=== PATIENT | female | born 1960 | race Caucasian/White ===

== ENCOUNTER 2017-09-01 12:08 | Emergency (ER) | payer OTHER ==
[2017-09-01 13:07] LABS: Absolute Lymphocytes (CBC) 0.6 K/uL (0.7-4.9); Absolute Monocytes 0.9 K/uL (0.1-1.3); Absolute Neutrophil 9.8 K/uL (1.8-8.0); Basophils % 0.2 % (0-1.3); Eosinophils % 0.1 % (0-4.4); Hematocrit 36.9 % (36.0-45.0); Lymphocytes % 5.4 % (15.3-44.8); MCH 30.6 pg (27.0-35.0); MCV 92.5 fL (80-100); Monocytes % 7.8 % (3.3-12.3); RBC Red Blood Cell Count 3.99 M/uL (3.86-4.86)
[2017-09-01 13:10] LABS: Potassium 3.6 mEq/L (3.6-5.0)
[2017-09-01 13:37] LABS: Blood Morphology Comment NOT SEEN (NOT SEEN); Platelet Estimate ADEQ; Urine White Blood Cell Casts OK
--- NOTE | 2017-09-01 13:49 | EDPHYS ---
Physician Documentation [facility] Name: Becca De Leon Age: 56 yrs Sex: Female : 1960 Arrival Date: 09/01/2017 Time: 12:12 Bed 5 Private MD: ED Physician Pierre Daniel HPI: 09/01 12:57 This 56 yrs old Female presents to ER via Ambulatory with complaints of jr8 Fever, CHILLS. 12:57 The patient reports fever, not measured (subjective). Onset: The symptoms/episode jr8 began/occurred acutely, yesterday. Modifying factors: there are no obvious modifying factors. Associated signs and symptoms: Pertinent positives: arthralgias, chills, cough, nausea, runny nose. Severity of symptoms: At their worst the symptoms were moderate in the emergency department the symptoms are unchanged. The patient has not experienced similar symptoms in the past. The patient has not recently seen a physician. Historical: - Allergies: 12:13 No Known Allergies; la1 - PMHx: 12:13 breast cancer L side; Hypertension; la1 - Immunization history:: Adult Immunizations up to date. - Social history:: Smoking status: Patient/guardian denies using tobacco. ROS: 12:57 Eyes: Negative for injury, pain, redness, and discharge, Neck: Negative for injury, jr8 pain, and swelling, Cardiovascular: Negative for chest pain, palpitations, and edema, Back: Negative for injury and pain, MS/Extremity: Negative for injury and deformity, Skin: Negative for injury, rash, and discoloration, Neuro: Negative for headache, weakness, numbness, tingling, and seizure. 12:57 Constitutional: Positive for body aches, chills, fever. 12:57 ENT: Positive for rhinorrhea, sinus congestion. 12:57 Respiratory: Positive for cough. 12:57 Abdomen/GI: Positive for nausea and vomiting, Negative for abdominal pain, diarrhea, abdominal cramps, abdominal distension, anorexia, dysphagia, hematemesis, black/tarry stool, rectal pain, rectal bleeding, bowel incontinence, flatulence. Exam: 12:57 Head/Face: Normocephalic, atraumatic. Eyes: Pupils equal round and reactive to light, jr8 extra-ocular motions intact. Lids and lashes normal. Conjunctiva and sclera are non-icteric and not injected. Cornea within normal limits. Periorbital areas with no swelling, redness, or edema. ENT: Nares patent. No nasal discharge, no septal abnormalities noted. Tympanic membranes are normal and external auditory canals are clear. Oropharynx with no redness, swelling, or masses, exudates, or evidence of obstruction, uvula midline. Mucous membranes moist. Neck: Trachea midline, no thyromegaly or masses palpated, and no cervical lymphadenopathy. Supple, full range of motion without nuchal rigidity, or vertebral point tenderness. No Meningismus. Cardiovascular: Regular rate and rhythm with a normal S1 and S2. No gallops, murmurs, or rubs. Normal PMI, no JVD. No pulse deficits. Respiratory: Lungs have equal breath sounds bilaterally, clear to auscultation and percussion. No rales, rhonchi or wheezes noted. No increased work of breathing, no retractions or nasal flaring. Abdomen/GI: Soft, non-tender, with normal bowel sounds. No distension or tympany. No guarding or rebound. No evidence of tenderness throughout. Back: No spinal tenderness. No costovertebral tenderness. Full range of motion. Skin: Warm, dry with normal turgor. Normal color with no rashes, no lesions, and no evidence of cellulitis. MS/ Extremity: Pulses equal, no cyanosis. Neurovascular intact. Full, normal range of motion. Neuro: Awake and alert, GCS 15, oriented to person, place, time, and situation. Cranial nerves II-XII grossly intact. Motor strength 5/5 in all extremities. Sensory grossly intact. Cerebellar exam normal. Normal gait. Vital Signs: 12:14 Pulse 82; Resp 20; Temp 99.3; Pulse Ox 100% on R/A; Weight 108.86 kg; Height 5 ft. 5 la1 in. (165.10 cm); 12:16 BP 160 / 107; la1 13:54 BP 154 / 90; Pulse 80; Resp 16; Pulse Ox 98% ; jl7 12:14 Body Mass Index 39.94 (108.86 kg, 165.10 cm) la1 MDM: 12:26 Patient medically screened. jr8 13:48 Differential diagnosis: viral Infection, bacterial infection, URI, bronchitis, jr8 pneumonia UTI, influenza. Data reviewed: vital signs, nurses notes, lab test result(s), radiologic studies, plain films, and as a result, I will discharge patient. Data interpreted: Pulse oximetry: on room air is 100 %. Interpretation: normal. Counseling: I had a detailed discussion with the patient and/or guardian regarding: the historical points, exam findings, and any diagnostic results supporting the discharge/admit diagnosis, lab results, radiology results, the need for outpatient follow up, a family practitioner, to return to the emergency department if symptoms worsen or persist or if there are any questions or concerns that arise at home. 09/01 12:31 Order name: Urine Dipstick--Ancillary (enter results); Complete Time: 17:42 ag 09/01 12:35 Order name: CBC with Diff; Complete Time: 13:45 jr8 09/01 12:35 Order name: Basic Metabolic Panel; Complete Time: 13:35 jr8 09/01 12:35 Order name: XRAY Chest (1 view); Complete Time: 17:42 8 09/01 12:35 Order name: Flu; Complete Time: 13:35 8 09/01 13:11 Order name: CBC Smear Scan; Complete Time: 13:45 EDAR 09/01 12:35 Order name: Urine Dipstick-Ancillary (obtain specimen); Complete Time: 13:10 jr8 Administered Medications: No medications were administered Disposition: 18:52 Co-signature as Attending Physician, Pierre Daniel MD. Disposition: 09/01/17 13:49 Discharged to Home. Impression: Viral infection, unspecified. - Condition is Stable. - Discharge Instructions: Antibiotic Resistance, Viral Infections. - Prescriptions for Zofran 4 mg Oral Tablet - take 1 tablet by ORAL route every 12 hours As needed; 20 tablet. - Medication Reconciliation Form, Thank You Letter, Antibiotic Education, Prescription Opioid Use form. - Follow up: Private Physician; When: 2 - 3 days; Reason: Recheck today's complaints, Continuance of care, Re-evaluation by your physician. - Problem is new. - Symptoms have improved. Signatures: Dispatcher [employer] [facility] Rasheed Vieyra PA PA jr8 Ramy aVlentino RN RN la1 Camden Charles RN RN jl7 Pierre Daniel MD MD Corrections: (The following items were deleted from the chart) 13:55 13:49 09/01/2017 13:49 Discharged to Home. Impression: Viral infection, unspecified. jl7 Condition is Stable. Forms are Medication Reconciliation Form, Thank You Letter, Antibiotic Education, Prescription Opioid Use. Follow up: Private Physician; When: 2 - 3 days; Reason: Recheck today's complaints, Continuance of care, Re-evaluation by your physician. Problem is new. Symptoms have improved. jr8
--- NOTE | 2017-09-01 13:49 | ER ---
Nurse's Notes [facility] Name: Becca Mileszluzma Age: 56 yrs Sex: Female : 1960 Arrival Date: 09/01/2017 Time: 12:12 Bed 5 Private MD: Diagnosis: Viral infection, unspecified Presentation: 09/01 12:13 Presenting complaint: Patient states: chills/nausea since yesterday, fever, aches in la1 elbows, knees, ankles. Transition of care: patient was not received from another setting of care. Onset of symptoms was September 01, 2017. Initial Sepsis Screen: Does the patient meet any 2 criteria? No. Patient's initial sepsis screen is negative. Does the patient have a suspected source of infection? No. Patient's initial sepsis screen is negative. Care prior to arrival: None. 12:13 Method Of Arrival: Ambulatory la1 12:13 Acuity: DINORAH 3 la1 12:14 Presenting complaint: Patient states: ibuprofen taken at 0930. la1 Historical: - Allergies: 12:13 No Known Allergies; la1 - PMHx: 12:13 breast cancer L side; Hypertension; la1 - Immunization history:: Adult Immunizations up to date. - Social history:: Smoking status: Patient/guardian denies using tobacco. Screenin:30 Abuse screen: Denies threats or abuse. Denies injuries from another. Nutritional jl7 screening: No deficits noted. Tuberculosis screening: No symptoms or risk factors identified. Fall Risk IV access (20 points). Total Bhakta Fall Scale indicates No Risk (0-24 pts). Assessment: 12:30 General: Appears in no apparent distress. uncomfortable, Behavior is calm, cooperative, jl7 appropriate for age. Pain: Complains of pain in umbilical area Pain does not radiate. Pain currently is 1 out of 10 on a pain scale. Pain began 1 day ago. Is continuous. Neuro: Level of Consciousness is awake, alert, obeys commands, Oriented to person, place, time, situation. Cardiovascular: Patient's skin is warm and dry. Respiratory: Airway is patent Respiratory effort is even, unlabored, Respiratory pattern is regular, symmetrical. GI: Abdomen is round non-distended, Bowel sounds present X 4 quads. Reports nausea, Patient currently denies diarrhea, vomiting. : No signs and/or symptoms were reported regarding the genitourinary system. EENT: No signs and/or symptoms were reported regarding the EENT system. Derm: Skin is pink, warm \T\ dry. Musculoskeletal: No signs and/or symptoms reported regarding the musculoskeletal system. 13:30 Reassessment: Patient and/or family updated on plan of care and expected duration. Pain jl7 level reassessed. Patient is alert, oriented x 3, equal unlabored respirations, skin warm/dry/pink. Vital Signs: 12:14 Pulse 82; Resp 20; Temp 99.3; Pulse Ox 100% on R/A; Weight 108.86 kg; Height 5 ft. 5 la1 in. (165.10 cm); 12:16 BP 160 / 107; la1 13:54 BP 154 / 90; Pulse 80; Resp 16; Pulse Ox 98% ; jl7 12:14 Body Mass Index 39.94 (108.86 kg, 165.10 cm) la1 ED Course: 12:12 Patient arrived in ED. sb2 12:14 Triage completed. la1 12:14 Arm band placed on left wrist. la1 12:20 Camden Charles, BRIDGER is Primary Nurse. jl7 12:26 Rasheed Vieyra PA is PHCP. jr8 12:26 Pierre Daniel MD is Attending Physician. jr8 12:30 Patient has correct armband on for positive identification. Placed in gown. Bed in low jl7 position. Call light in reach. Side rails up X 1. Pulse ox on. NIBP on. 12:30 Initial lab(s) drawn, by ED staff, sent to lab. Urine collected: clean catch specimen. jl7 Inserted saline lock: 20 gauge in right forearm, using aseptic technique. 13:35 XRAY Chest (1 view) In Process Unspecified. EDMS 13:54 No provider procedures requiring assistance completed. IV discontinued, intact, jl7 bleeding controlled, No redness/swelling at site. Pressure dressing applied. Administered Medications: No medications were administered Outcome: 13:49 Discharge ordered by . jr8 13:54 Discharged to home ambulatory, with family. jl7 13:54 Condition: stable 13:54 Discharge instructions given to patient, family, Instructed on discharge instructions, follow up and referral plans. medication usage, Demonstrated understanding of instructions, follow-up care, medications, Prescriptions given X 1. 13:55 Patient left the ED. jl7 Signatures: Dispatcher [employer] EDMS Rasheed Vieyra PA PA jr8 Ramy Valentino RN RN la1 Camden Charles RN RN jl7 Jessica Osorio2
--- NOTE | 2017-09-01 13:52 | RAD REPORT ---
EXAM DESCRIPTION: RAD - Chest Single View - 09/01/2017 1:35 pm CLINICAL HISTORY: Chills, fever, body aches COMPARISON: June 12 TECHNIQUE: AP portable chest image was obtained 1317 hours . FINDINGS: Lungs are clear. Heart and vasculature are normal. No measurable pleural effusion and no p neumothorax. No gross bony abnormality seen. No acute aortic findings suspected. IMPRESSION: No acute cardiopulmonary process. No suspicious change from comparison.
[2017-09-01 14:04] LABS: Urine Blood TRACE (NEG); Urine Glucose NEGATIVE (NEG); Urine Protein 1+ (NEG)
== END 2017-09-01 13:55 | disposition home or self-care (01) ==
LOC: ER 12:08
DX: B34.9 Viral infection, unspecified (principal); I10 Essential (primary) hypertension; Z85.3 Personal history of malignant neoplasm of breast
CPT/HCPCS: 36415; 71045; 80048; 81003; 85025; 87804; 99284

== ENCOUNTER 2017-11-12 09:04 | Day surgery (SDC) | payer OTHER ==
[2017-11-08 15:39] LABS: Absolute Monocytes 0.7 K/uL (0.1-1.3); Absolute Neutrophil 3.9 K/uL (1.8-8.0); Basophils % 0.7 % (0-1.3); Eosinophils % 4.5 % (0-4.4); Hematocrit 38.5 % (36.0-45.0); Lymphocytes % 29.2 % (15.3-44.8); MCH 32.2 pg (27.0-35.0); MPV 8.4 fL (7.6-11.3)
--- NOTE | 2017-11-08 15:40 | RAD REPORT ---
EXAM DESCRIPTION: RAD - Chest Pa And Lat (2 Views) - 11/08/2017 3:33 pm CLINICAL HISTORY: Preop chest, pending hernia repair, history of breast cancer with left lumpectomy COMPARISON: August 2017 TECHNIQUE: PA and lateral views of the chest were obtained. FINDINGS: The lungs are clear of failure, infiltrate or mass. Interstitial markings are prominent bu t unchanged. Trachea is midline. Heart size is normal and central vasculature is within normal limi ts. No pleural effusion or pneumothorax seen. No acute bony finding noted. No aortic abnormality. IMPRESSION: No acute cardiopulmonary process. Chest findings are stable from August 2017.
[2017-11-08 15:51] LABS: Potassium 4.3 mmol/L (3.5-5.1)
--- NOTE | 2017-11-08 19:03 | EKG ---
Test Date: 2017-11-08 Test Time: 15:21:29 [place] Equipment Repairer: DEX MEASUREMENT RESULTS: Intervals: Rate: 49 FL: 162 QRSD: 80 QT: 444 QTc: 401 Durand: P: 34 FL: 162 QRS: 16 T: 44 INTERPRETIVE STATEMENTS: Marked sinus bradycardia Abnormal ECG Compared to ECG 06/12/2017 15:39:45 Sinus rhythm no longer present Electronically Signed On 11-08-17 19:02:38 CDT by Wilfred Martin
[~2017-11-12 09:04] MED LIST: CEFAZOLIN/SWI 1gm 1 GM/10 ML SYR IVP SCH
[2017-11-12] MEDS ORDERED: MIDAZOLAM HCL 2 MG/2 ML INJ ONE (10:04)
[2017-11-12] MEDS ORDERED: PROPOFOL 200 MG/20 ML VIAL IV ONE (10:04)
[2017-11-12] MEDS ORDERED: LIDOCAINE 1% MPF 5 ML VIAL ONE (10:04)
[2017-11-12] MEDS ORDERED: FENTANYL CITR 100 MCG/2 ML ONE ×2 (10:05→11:26)
[2017-11-12] MEDS ORDERED: ROCURONIUM 50 MG/5 ML VIAL IV ONE (10:05)
[2017-11-12] MEDS ORDERED: CEFAZOLIN/SWI 1gm 1 GM/10 ML SYR ONE (10:09)
[2017-11-12] MEDS ORDERED: Ringers Lactate 1,000 ML IV ONE (10:09)
[2017-11-12] MEDS ORDERED: NEOSTIGMINE 1 MG/ML -5 ML SYRINGE ONE (11:31)
[2017-11-12] MEDS ORDERED: GLYCOPYRROLATE 0.2 MG/ML SYR ONE ×2 (11:31→12:02)
--- NOTE | 2017-11-12 11:51 | P.BOP ---
Preoperative diagnosis: Large incarcerated ventral hernia Postoperative diagnosis: Large incarcerated mid-ventral hernia and incisional upper ventral hernia Primary procedure: 1. Open repair of Large incarcerated mid ventral hernia Secondary procedure: 2. Open repair of Large incisional incacerated upper ventral hernia Treater Helper: DANA MANJARREZ (HUMANITIES AND LANGUAGES PROFESSOR) Estimated blood loss: <50cc Specimen: hernia sac x 2 Findings: 2 different hernia locations with separate incisions and repair Anesthesia: General Complications: None
[2017-11-12] MEDS ORDERED: KETOROLAC 30 MG/ML INJ ONE (11:59)
[2017-11-12] MEDS ORDERED: ONDANSETRON HCL 40 MG/20 ML VIAL ONE (12:00)
[2017-11-12] MEDS ORDERED: MORPHINE 10 MG/ML VIAL ONE (12:06)
[2017-11-12] MEDS: MEPERIDINE HCL 50 MG/ML AMP ONE ×3 (12:18→12:38)
[2017-11-12] MEDS ORDERED: ONDANSETRON 4 MG/2 ML VIAL ONE (12:39)
[2017-11-12] MEDS ORDERED: MEPERIDINE HCL 50 MG/ML AMP ONE (13:03)
--- NOTE | 2017-11-12 13:31 | OP ---
Date of Procedure: 11/12/2017 Surgeon: Jorge Rosas MD Manager Managing: OTTONIEL Covington. Preoperative Diagnoses: Large incarcerated ventral hernia, morbid obesity. Postoperative Diagnoses: Large incarcerated mid ventral hernia and incisional upper ventral hernia. Procedures: 1.Open repair of a large incarcerated mid ventral hernia. 2.Open repair of a large incisional incarcerated open ventral hernia. These 2 hernias have differen t locations and different incisions. Estimated Blood Loss: Less than 50 cc. Specimen: Hernia sac. Findings: The patient has 2 different hernias. She has a previous incision from previous surgeries and they are all from mid ventral region. A hernia was found in that area under an incision after we explored the lower ventral hernia and found that the patient has a large fascial defect. We could n ot just finish the case without addressing the issue of the upper ventral hernia. So, we have to add ress this with the need for an incision to be able to reach that area. Both of them have incarcerate d omentum, but the mid ventral hernia also had incarcerated large bowel. The bowel seems to be viabl e and could be reduced back into the abdominal cavity. Multiple adhesions had to be removed with the help of LigaSure to be able to reduce the bowel back into the abdominal cavity. Indications: This is the case of a 56-year-old patient, comes to us with a large ventral hernia. Jacques mata explained the benefits, alternatives, and risks of repair which include, but not limited to infec tion, bleeding, damage to adjacent structures, anesthesia complication, recurrence, [place], and even deat h. She also understands this may not relieve any symptoms. She might need more than one surgical in tervention. She understood. Signed a consent. She also was explained the importance of no heavy li fting and losing weight. Description Of Procedure: The patient was brought to the operating room, placed in supine position. Anesthesia was done without complication. Abdominal area was prepped and draped in a sterile fashio n. We made an incision where the patient felt a hernia. It is a large hernia, incarcerated with ten derness. An incision was made there and we indeed noticed that hernia, large hernia sac, incarcerated omentum, and large bowel. We opened the hernia sac carefully that allowed use to inspect the omentu m and the large bowel. At present, incision was opened a little more to allow evaluation of transver se colon. Once we noticed this to be viable, we have to relieve some adhesions attached to the anter ior abdominal wall and to the hernia sac with the help of LigaSure since they were very vascular adhe sions and omentum trapped in that area too. Once we checked and evaluated the transverse colon and se ems to be intact, then we reduced it back into the abdominal cavity. Cleaned the fascial edges. In order for us to be able to repair this hernia, we have to also take some adhesions down that are to t he rest of abdominal wall. Since the incision is large enough to allow a mini laparotomy, we did ilsa t and then we were able to access the incision the patient has in the mid upper abdomen. We were jr prised to know this patient had also a ventral hernia there in that incision with incarcerated omentu m and needs to be repaired. So, we dropped mid ventral region hernia repair and went to the upper lee tral region Made an incision where the patient has a previous scar. Found the hernia sac. Cleaned t he fascia edges. We noticed in that incision multiple tiny hernias. We made this 1 defect out of mu ltiple and then basically reduced the omentum, cleaned fascial edges, removed the hernia sac, and maxx sed that with a [id number] #1 Prolene multiple until completely closed. When we finished that a yair, then we irrigated the area. No bleeding and then we went back to the initial hernia repair in t he mid abdomen just above the umbilicus. That area once again we cleaned the fascial edges and when we saw that fascial edges were coming together without tension, so we proceeded to close the area wit h [id number] #1 Prolene multiple times until completely closed. The area was irrigated. A larg e cavity from the incarcerated omentum and bowel and the subcutaneous tissue were obliterated with 3- 0 chromic after complete hemostasis and then the skin with 4-0 PDS with Steri-Strips on top. Sponge count and instrument counts were correct. The patient tolerated the procedure well. The patient was sent to recovery in stable condition. GERSON/JUSTICE Voice ID: [id number] Report ID: [id number]
--- NOTE | 2017-11-12 13:34 | DS ---
Diagnoses: Incarcerated mid ventral hernia and upper ventral hernia. Procedures: Repair of those hernias. Disposition: Home. Activity: As tolerated. No heavy lifting. Followup: Follow up in my office in 1 week. Call for appointment [phone]. Medications: Include Bactrim DS p.o. b.i.d., Vicodin q.4 hours p.r.n. pain. The patient advised to use the abdominal binder. GERSON/JUSTICE Voice ID: [id number] Report ID: [id number]
[2017-11-12] MEDS ORDERED: HYDROCODONE/APAP 7.5/325 MG TAB ONE (14:08)
== END 2017-11-12 14:55 | disposition home or self-care (01) ==
LOC: OR 09:04
PROVIDERS: ATTEND Surgery
PROC: 0WQF0ZZ Repair Abdominal Wall, Open Approach (ICD-10-PCS; 2017-11-12)
PROC: 0WQF0ZZ Repair Abdominal Wall, Open Approach (ICD-10-PCS; principal; 2017-11-12 11:15)
DX: K43.6 Other and unspecified ventral hernia with obstruction, without gangrene (principal); K43.0 Incisional hernia with obstruction, without gangrene; I10 Essential (primary) hypertension
CPT/HCPCS: 36415; 71046; 80048; 85025; 88302; 93005; J0690; J2175; J2250; J2405; J2710; J3010

== ENCOUNTER 2019-03-17 06:59 | Emergency (ER) | payer BC, OTHER ==
[2019-03-17] MEDS ORDERED: HYDROCODONE/APAP 5/325 MG TAB ONE (07:20)
[2019-03-17] MEDS ORDERED: IBUPROFEN 400 MG TAB ONE (07:20)
--- NOTE | 2019-03-17 07:56 | EDPHYS ---
Physician Documentation [facility] Name: Becca Mileszluzma Age: 58 yrs Sex: Female : 1960 Arrival Date: 03/17/2019 Time: 06:59 Bed 20 Private MD: ED Physician Lex Hewitt HPI: 03/17 07:05 This 58 yrs old Female presents to ER via Unassigned with complaints of Fall rn Injury. 07:05 Details of fall: The patient fell from a height, down approximately 2 stairs. Onset: rn The symptoms/episode began/occurred just prior to arrival. Associated injuries: The patient sustained left ankle. Severity of symptoms: At their worst the symptoms were moderate, in the emergency department the symptoms are unchanged. The patient has not experienced similar symptoms in the past. The patient has not recently seen a physician. 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 Hurts to walk on it.. Historical: - Allergies: 07:15 No Known Allergies; vc - Home Meds: 07:15 Bystolic 20 mg oral tab 1 tab once daily [Active]; vc - PMHx: 07:15 breast cancer L side; Hypertension; vc - PSHx: 07:15 Lumpectomy; Left side lymph node removed; Left foot; vc - Immunization history:: Adult Immunizations. - Social history:: Smoking status: . - Ebola Screening: : Patient denies travel to an Ebola-affected area in the 21 days before illness onset. - Family history:: not pertinent. - Hospitalizations: : No recent hospitalization is reported. ROS: 07:05 Constitutional: Negative for fever, chills, and weight loss, Eyes: Negative for injury, rn pain, redness, and discharge, Neck: Negative for injury, pain, and swelling, Cardiovascular: Negative for chest pain, palpitations, and edema, Respiratory: Negative for shortness of breath, cough, wheezing, and pleuritic chest pain, Abdomen/GI: Negative for abdominal pain, nausea, vomiting, diarrhea, and constipation, Back: Negative for injury and pain, MS/Extremity: + left ankle injury and pain Skin: Negative for injury, rash, and discoloration, Neuro: Negative for headache, weakness, numbness, tingling, and seizure. Exam: 07:05 Constitutional: This is a well developed, well nourished patient who is awake, alert, rn appears in pain Head/Face: Normocephalic, atraumatic. MS/ Extremity: Pulses equal, no cyanosis. Neurovascular intact. + left lateral and medial malleolus swelling and tenderness. No open wounds/lacerations. No tenderness of toes/foot. No proximal tenderness of tib/fib regions. Vital Signs: 07:10 BP 151 / 76; Pulse 61; Resp 22; Temp 98.2(TE); Pulse Ox 100% on R/A; Pain 10/10; vc 08:00 BP 165 / 67; Pulse 62; Resp 16; Pulse Ox 100% on R/A; Pain 4/10; vc MDM: 07:01 Patient medically screened. rn 07:54 Differential diagnosis: contusion, fracture, sprain, strain. Data reviewed: vital rn signs, nurses notes, radiologic studies, plain films, and as a result, I will discharge patient. Test interpretation: by ED physician or midlevel provider: plain radiologic studies, Bimalleolar fracture of left ankle, no dislocation.. Counseling: I had a detailed discussion with the patient and/or guardian regarding: the historical points, exam findings, and any diagnostic results supporting the discharge/admit diagnosis, radiology results, the need for outpatient follow up, to return to the emergency department if symptoms worsen or persist or if there are any questions or concerns that arise at home. Response to treatment: the patient's symptoms have mildly improved after treatment, and as a result, I will discharge patient. Special discussion: I discussed with the patient/guardian in detail that at this point there is no indication for admission to the hospital. It is understood, however, that if the symptoms persist or worsen the patient needs to return immediately for re-evaluation. Based on the history and exam findings, there is no indication for further emergent testing or inpatient evaluation. I discussed with the patient/guardian the need to see the orthopedic surgeon for further evaluation of the symptoms. 07:54 ED course: Will dc home non-weight bearing, on crutches, with ortho f/u.. rn 03/17 07:05 Order name: XRAY Ankle LEFT 3 view rn 03/17 07:37 Order name: Splint - Ankle: Orthoglass: Stirrup; Complete Time: 08:16 rn 12/02 07:37 Order name: Splint - Ankle: Posterior; Complete Time: 08:16 rn Administered Medications: 07:20 Drug: Ibuprofen 800 mg Route: PO; vc 08:30 Follow up: Response: No adverse reaction aa5 07:20 Drug: Phenix 5 mg-325 mg 1 tabs Route: PO; vc 08:30 Follow up: Response: No adverse reaction aa5 Disposition: 03/17/19 07:56 Discharged to Home. Impression: Bimalleolar fracture of lower leg. - Condition is Stable. - Discharge Instructions: Nondisplaced Bimalleolar Ankle Fracture Treated With Immobilization, Cast or Splint Care, Adult. - Prescriptions for Ibuprofen 800 mg Oral Tablet - take 1 tablet by ORAL route every 12 hours As needed take with food; 20 tablet. Tylenol- Codeine #3 300-30 mg Oral Tablet - take 2 tablets by ORAL route every 6 hours As needed; 20 tablet. - Medication Reconciliation Form, Thank You Letter, Antibiotic Education, Prescription Opioid Use, Work release form form. - Follow up: Freddy Rocha MD; When: 5 - 6 days; Reason: Recheck today's complaints, Re-evaluation by your physician. - Problem is new. - Symptoms have improved. Signatures: Dispatcher [employer] EDMS Lex Hewitt MD MD rn Calderon, Audri, RN RN aa5 Chitra Brumfield RN RN tw2 Kelley Chapa RN RN vc Corrections: (The following items were deleted from the chart) 08:39 07:56 03/17/2019 07:56 Discharged to Home. Impression: Bimalleolar fracture of lower aa5 leg. Condition is Stable. Forms are Medication Reconciliation Form, Thank You Letter, Antibiotic Education, Prescription Opioid Use. Follow up: Freddy Rocha; When: 5 - 6 days; Reason: Recheck today's complaints, Re-evaluation by your physician. Problem is new. Symptoms have improved. rn
--- NOTE | 2019-03-17 07:56 | ER ---
Nurse's Notes [facility] Name: Becca De Leon Age: 58 yrs Sex: Female : 1960 Arrival Date: 03/17/2019 Time: 06:59 Bed 20 Private MD: Diagnosis: Bimalleolar fracture of lower leg Presentation: 03/17 07:00 Presenting complaint: Patient states: "I was walking down the steps heading to work vc when my ankle rolled and I fell down 2 steps." Patient c/o pain to left ankle. 07:00 Transition of care: patient was not received from another setting of care. Onset of vc symptoms was March 17, 2019. Risk Assessment: Do you want to hurt yourself or someone else? Patient reports no desire to harm self or others. Initial Sepsis Screen: Does the patient meet any 2 criteria? RR > 20 per min. Does the patient have a suspected source of infection? No. Patient's initial sepsis screen is negative. Care prior to arrival: None. 07:00 Method Of Arrival: Wheelchair vc 07:00 Acuity: DINORAH 4 vc Triage Assessment: 07:32 General: Appears uncomfortable, Behavior is cooperative, crying. Pain: Complains of vc pain in left lateral ankle, left medial ankle and anterior aspect of left ankle Pain does not radiate. Pain currently is 8 out of 10 on a pain scale. at worst was 10 out of 10 on a pain scale. Quality of pain is described as crushing, sharp, Pain began 1 hour ago. Is continuous, Alleviated by cold application, relaxation, Aggravated by weight bearing, any movement. EENT: No signs and/or symptoms were reported regarding the EENT system. Neuro: Level of Consciousness is awake, alert, obeys commands, Oriented to person, place, time. Cardiovascular: Capillary refill < 3 seconds toes Edema is 1+ to left foot. Respiratory: Airway is patent Respiratory effort is even, unlabored. GI: No signs and/or symptoms were reported involving the gastrointestinal system. : No deficits noted. Derm: Skin is intact, is healthy with good turgor. Musculoskeletal: Range of motion: limited in left ankle Swelling present in left ankle Reports pain in Left ankle since falling down 2 steps this am. Pain is 8 out of 10 on a pain scale. while at rest, a 10 out of 10 with any movement. Injury Description: Patient stated that her left ankle rolled while going down the stairs on her way to work, patient states she fell down 2 steps. The only pain c/o is to left ankle. Historical: - Allergies: 07:15 No Known Allergies; vc - Home Meds: 07:15 Bystolic 20 mg oral tab 1 tab once daily [Active]; vc - PMHx: 07:15 breast cancer L side; Hypertension; vc - PSHx: 07:15 Lumpectomy; Left side lymph node removed; Left foot; vc - Immunization history:: Adult Immunizations. - Social history:: Smoking status: . - Ebola Screening: : Patient denies travel to an Ebola-affected area in the 21 days before illness onset. - Family history:: not pertinent. - Hospitalizations: : No recent hospitalization is reported. Screenin:05 Abuse screen:. Nutritional screening: No deficits noted. Tuberculosis screening: No tw2 symptoms or risk factors identified. Fall Risk None identified. Assessment: 08:00 Reassessment: Patient is alert, oriented x 3, equal unlabored respirations, skin vc warm/dry/pink. Patient states symptoms have improved. Pain: Pain currently is 4 out of 10 on a pain scale. 08:30 Reassessment: Patient is alert, oriented x 3, equal unlabored respirations, skin aa5 warm/dry/pink. Patient states feeling better. Pt able to move left toes, sensation intact, Capillary refill < 3 seconds to left toes. . 08:30 Pain: Pain currently is 4 out of 10 on a pain scale. aa5 Vital Signs: 07:10 BP 151 / 76; Pulse 61; Resp 22; Temp 98.2(TE); Pulse Ox 100% on R/A; Pain 10/10; vc 08:00 BP 165 / 67; Pulse 62; Resp 16; Pulse Ox 100% on R/A; Pain 4/10; vc ED Course: 06:59 Patient arrived in ED. ds1 07:00 Arm band placed on right wrist. vc 07:01 Lex Hewitt MD is Attending Physician. rn 07:06 Patient maintains SpO2 saturation greater than 95% on room air. tw2 07:10 Patient has correct armband on for positive identification. Bed in low position. Call vc light in reach. Side rails up X 1. Adult w/ patient. Pulse ox on. NIBP on. Pillow given. Ice pack to injury. 07:14 Kelley Chapa, RN is Primary Nurse. vc 07:25 XRAY Ankle LEFT 3 view In Process Unspecified. EDMS 07:26 Triage completed. vc 07:55 Freddy Rocha MD is Referral Physician. rn 08:16 Orthoglass splint: Posterior short lleg splint applied on left leg. stirrup splint em1 applied on left leg. 08:25 No provider procedures requiring assistance completed. Patient did not have IV access vc during this emergency room visit. Administered Medications: 07:20 Drug: Ibuprofen 800 mg Route: PO; vc 08:30 Follow up: Response: No adverse reaction aa5 07:20 Drug: Ferris 5 mg-325 mg 1 tabs Route: PO; vc 08:30 Follow up: Response: No adverse reaction aa5 Outcome: 07:56 Discharge ordered by MD. rn 08:30 Discharged to home via wheelchair, with significant other, Pt states she has crutches aa5 in the car. 08:30 Condition: stable 08:30 Discharge instructions given to patient, Instructed on discharge instructions, follow up and referral plans. medication usage, Demonstrated understanding of instructions, follow-up care, medications, Prescriptions given X 2. 08:39 Patient left the ED. aa5 Signatures: Dispatcher [employer] EDMI Iza Castaneda ds1 Lex Hewitt MD MD rn Martinez, Dwain em1 Clover Britt RN RN aa5 Chitra Brumfield RN RN tw2 Kelley Chapa, RN RN vc Corrections: (The following items were deleted from the chart) 08:41 08:30 Reassessment: Patient is alert, oriented x 3, equal unlabored respirations, skin aa5 warm/dry/pink. Patient states feeling better. aa5
--- NOTE | 2019-03-17 08:40 | RAD REPORT ---
EXAM DESCRIPTION: RAD - Ankle Left 3 View - 03/17/2019 7:25 am CLINICAL HISTORY: Fall, ankle pain COMPARISON: None. FINDINGS: Transverse fracture is present through the medial malleolus. There is an oblique fracture of the distal fibula. Medial malleolus fracture fragment remains approximated to the dome of the talu s which has been displaced laterally approximately 5 mm. Posterior malleolus appears intact. AP align ment of the talus is normal. Hardware in place from prior midfoot fracture repair. Soft tissue swelli ng present around the ankle joint. No foreign body. IMPRESSION: Bimalleolar left ankle fracture with 5 mm lateral displacement of the dome of the talus.
[2019-03-17 09:46] VITALS: BP 151/76; TEMP 98.2; O2SAT 100
== END 2019-03-17 08:39 | disposition home or self-care (01) ==
LOC: ER 06:59
PROC: 2W3RX1Z Immobilization of Left Lower Leg using Splint (ICD-10-PCS; principal; 2019-03-17)
DX: S82.842A Displaced bimalleolar fracture of left lower leg, initial encounter for closed fracture (principal); W10.9XXA Fall (on) (from) unspecified stairs and steps, initial encounter; Y93.9 Activity, unspecified; Y92.9 Unspecified place or not applicable; I10 Essential (primary) hypertension; Z85.3 Personal history of malignant neoplasm of breast
CPT/HCPCS: 99284

== ENCOUNTER 2022-06-30 09:07 | Emergency (ER) | payer BC ==
--- OUTSIDE RECORDS SUMMARY | 2022-06-30 09:10 | XMS REPORT | Clinical Summary ---
:1960 Author Organization [facility] Address [address] [place] [address] Care Team Providers Name Role Phone Annia Cerda MD Unavailable Betty Larkin MD Unavailable Chester Stanley MD Unavailable Gladys Martínez Unavailable Joanne Malone MD Unavailable Dhiraj Wayne MD Unavailable Roz Park MD Primary Care Provider Nadege Nelson MD Unavailable Unavailable Allergies No known active allergies Medications Medication Sig Dispensed Refills Start Date End Date Status nebivoloL (Bystolic) Take 20 mg by 0 09/08/2020 Active 20 mg tablet mouth daily. ciprofloxacin HCl Take 2 0 02/14/2021 A ctive (CIPRO) 500 mg tablets by tablet mouth twice daily. cholecalciferol, Take 5,000 0 Ac tive vitamin D3, (VITAMIN Units by D3) 5,000 units tab mouth daily. tablet cyanocobalamin-cobam Place 1 0 Active amide 5,000-100 mcg tablet under lozg the tongue daily. multivitamin tab Take 1 tablet 0 Active tablet by mouth daily. letrozole (FEMARA) TAKE 1 TABLET 90 tablet 1 07/25/2021 Active 2.5 mg BY MOUTH tabletIndications: EVERY DAY Infiltrating duct carcinoma, NOS of central portion of breast <Female; Right> letrozole (Femara) Take 1 tablet 30 tablet 5 02/18/20212021 Discontinued 2.5 mg (2.5 mg) by tabletIndications: mouth daily. Infiltrating duct carcinoma, NOS of central portion of breast <Female; Right> Active Problems Patient Care Coordination Note Formatting of this note might be differe nt from the original. 12/31/2020 [facility] COVID test results: not detected Problem Noted Date Vitamin D deficiency 02/18/2021 Postmenopausal osteopenia 02/18/2021 Estrogen receptor positive status (ER+) 12/24/2020 Morbid obesity 11/16/2020 Infiltrating duct carcinoma of central portion of righ t female breast 05/20/2013 Cancer Staging: Pathologic stage from 01/2021: Stage IA (pT2, pN0(sn), cM0, G2, ER+, IL+, HER2-, Oncotype DX score: 3) - Signed by Roz Park MD on 12/26/2020 Personal history of malignant neoplasm of breast Overview: Idc and dcis Encounters Date Type Specialty Care Team Description 03/22/2022 Telephone Oncology Mer Hinkle RN 03/22/2022 Telephone Oncology Mer Hinkle RN 02/27/2022 Telephone Oncology Mer Hinkle RN 07/25/2021 Refill Breast Medical Roz Park MD Infiltrati ng duct Oncology carcinoma, NOS of central portion of [address] <Female; Right> after 06/30/2021 Immunizations Name Administration Dates Next Due Moderna SARS-CoV-2 Vaccination 07/15/2020, 06/14/2020 Surgical History Surgery Date Site/Laterality Comments COLONOSCOPY BREAST LUMPECTOMY 2012 and 2020 Left 2012 zach anibal and Right 2020 removed STOMACH SURGERY 04/16/2003 - 04/15/2004 gastric by pass LUMPECTOMY BREAST 04/16/2012 - 04/15/2013 Left ANKLE SURGERY 04/16/2014 - 04/15/2015 Left twice ANKLE SURGERY 04/16/2018 - 04/15/2019 Left HERNIA REPAIR 04/16/2017 - 04/15/2018 Medical History Medical History Date Comments Estrogen receptor positive status (ER+) 12/24/2020 Hypertension Malignant tumor of breast Left 01/2013 Right 09/2020 Idc and dcis Family History Medical History Relation Name Comments -Other cancer Mother Aakash Lee Ovarian cancer Sister Sonia Keller Stage 1 2014 Relation Name Status Comments Mother Aakash Cyr Sister Sonia Keller Social History Tobacco Use Types Packs/Day Years Used Date Smoking Tobacco: Former Cigarettes 0 0 Smokeless Tobacco: Former Qu it: 04/16/2017 Alcohol Use Standard Drinks/Week Comments Yes 4 (1 standard drink = 0.6 oz pure alcoho l) Sex Assigned at Date Recorded Female 12/22/2020 2:34 PM CDT Job Start Date Occupation Industry Not on file Not on file Not on file Obstetrics History Comments Menarche - 12 years Years, LMP - 45 year s. 2, Para 2, Abortions 0. Her first at the age 22 years, She took control pills for approximately 3 months. Hormone Replacement Therapy for 0 years. She breast-fed for a total of 4 months Last Filed Vital Signs Not on file Plan of Treatment Health Maintenance Due Date Last Done Comments COVID-19 Vaccination (3 - Moderna risk 08/12/2020 , 06/14/2020 series) Results Not on fileafter 06/30/2021 Insurance Payer Benefit Plan / Subscriber ID Effective Dates Phone Addre ss Type Group [place] [id number] 2019-Present [address] [id number] HMO BLUE SHIELD BLUE/[place] [employer] [id number] [phone] [id number] (Work) Becca De Leon Personal/Family Self 1960 [id number] (Home) [place] [address] Becca De Leon Personal/Family Self 1960 [id number]) [place], [place] [phone] (Work) Care Teams [employer] Dispatcher Relationship Specialty Start Date End Date Roz Park MD PCP - General Medical Oncology 12/09/[address] [place] [id number] Annia Cerda MD Physician 06/23/[address] [place] [id number] Betty Larkin MD Physician 06/23/[address] [place] [id number] Chester Stanley MD Physician 06/23/[address] [place] [id number] Gladys Martínez PA Physician Security Patrol Driver 06/23/[id number] [id number] Joanne Malone MD Physician 06/23/[address] [place] [id number] Dhiraj Wayne MD Physician 06/23/[address] [place] [id number] Nadege Nelson MD Physician Radiation Oncology 01/25/[address] [place] [id number]
--- OUTSIDE RECORDS SUMMARY | 2022-06-30 09:11 | XMS REPORT | Continuity of Care Document ---
:1960 Author Organization [facility] t Address [address] [facility] [address] [place] [address] Care Team Providers Name Role Phone [phone] Primary Care Physician Unavailable Herrera Coulter Attending Clinician Unavailable SYSTEM, PROVIDER NOT IN Attending Clinician Unavailable Mer Hinkle RN Attending Clinician Unavailable DONNA MONIQUE Attending Clinician Unavailable Donna Mederos Attending Clinician Macho PRESSURE STEAMER TENDERNiurka Attending Clinician Tamiko Weaver RN Attending Clinician Unavailable HA TUCKER Attending Clinician Unavailable Only, Ang Db Test Attending Clinician Unavailable Ha Weston Attending Clinician Roz Ford MD Attending Clinician Seema Rodriguez Attending Clinician ROZ FORD Attending Clinician Unavailable MAX GAY Attending Clinician Unavailable VENKATA CONNOLLY Attending Clinician Unavailable ZINA PALOMARES Attending Clinician Unavailable Zina Palomares MD Attending Clinician Doctor Unassigned, [place] Attending Clinician Unavailable LIVAN ESTRADA Attending Clinician Unavailable LAYLA SHEEHAN Attending Clinician Unavailable Graciela Jurado MD Attending Clinician GRACIELA JURADO Attending Clinician Unavailable ARASH GUSTAFSON Attending Clinician Unavailable UNKNOWN, ATTENDING Attending Clinician Unavailable SEEMA LEMA Attending Clinician Unavailable ZINA PALOMARES Admitting Clinician Unavailable Payers Payer Name Policy Type Policy Number Effective Date Expiration Date Ramirez logan [facility] [id number] 2019 00:00:00 SELECT Problems Condition Condition Condition Status Onset Resolution Last Treating Co mments Source Name Details Category Date Date Treatment Clinician Date Vitamin D Vitamin D Disease Active 2020-04 Uni vers deficiency deficiency 1-05 it y of 00:00: [place] 00 MD Puja gibbs [facility] Postmenopa Postmenopa Disease Active 2020-04 U nivers usal usal 1-05 [place] of [place] Puja gibbs [facility] Estrogen Estrogen Disease Active Unive rs receptor receptor 9-10 ity of positive positive 00:00: [place] status status 00 (ER+) (ER+) Joce sai [facility] Morbid Morbid Disease Active Univers obesity obesity 8-03 ity of 00:00: [place] 00 MD Puja gibbs [facility] Malignant Malignant Disease Active Overview: Univers neoplasm neoplasm 7-21 Formattin ity of of right of right 00:00: g of this Wander as female female 00 note Medical breast, breast, might be Branch unspecifie unspecifie different d estrogen d estrogen from the receptor receptor original. 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 [id number] Abnormal Problem Com mon [id number] CT scan, [facility] chest - [facility] Personal Personal Disease Active Overview: Un santiago history of history of Formattin ity of malignant malignant g of this [place] neoplasm neoplasm note MD of breast of breast might be An derso different n from the Cancer original. Center Idc and dcis Allergies, Adverse Reactions, Alerts Allergy Allergy Status Severity Reaction(s) Onset Inactive Treating Comm ents Source Name Type Date Date Clinician NO KNOWN Drug Active Univers ALLERGIE Class ity of S [facility] Family History Family Member Diagnosis Comments Start Date Stop Date Source Natural mother -Other cancer Univers [facility] Natural sister Ovarian cancer [facility] Social History Social Habit Start Date Stop Date Quantity Comments Source Sex Assigned At Common Sp stephanie - [facility] History of Tobacco [facility] - Use [facility] History SDOH University o f Alcohol Frequency [facility] [place] Branch History SDNC University o f Alcohol Std Drinks [facility] History SDNC University o f Alcohol Binge [facility] Branch Alcohol intake 2020-12-27 2020-12-27 Current drinker Unive rsity of 00:00:00 00:00:00 of alcohol Peter marley (finding) [facility] [place] Tobacco use and 2020-12-24 2020-12-24 Former smokeless Uni versity of exposure 00:00:00 00:00:00 tobacco user [facility] Cigarette 2020-12-24 2020-12-24 University of pack-years 00:00:00 00:00:00 [facility] Cigarettes smoked 2020-09-08 2020-09-08 Univers ity of current (pack per 00:00:00 00:00:00 [facility] ) - Reported Branch Alcohol Comment 2020-09-08 2020-09-08 wine once a week Uni versity of 00:00:00 00:00:00 [facility] Smoking Status Start Date Stop Date Source Former Smoker 2022-01-24 00:00:00 2022-01-24 00:00:00 [facility] pirit - [facility] Medications Ordered Filled Start Stop Current Ordering Indication Dosage Frequency Signature Comments Components Source Medication Medication Date Date Medication? Clinician (SIG) Name Name NEBIVOLOL Yes [id number] 20mg TAKE 1 Un santiago 20 mg 6-22 TABLET BY ity of tablet 00:00: MOUTH [place] 00 DAILY. Medical FOLLOW-UP Branch FOR REFILLS AND FASTING LABS. Nebivolol 2021- No [id number] 20mg Take 1 U nivers 20 mg 6-12 06-22 tablet by ity of tablet 00:00: 00:00 mouth [place] 00 :00 daily. Medical Follow-up Branch for refills and fasting labs. letrozole Yes Infiltratin TAKE 1 Univers (FEMARA) 4-11 g duct TABLET BY ity of 2.5 mg 00:00: carcinoma, MOUTH [place] tablet 00 NOS of EVERY DAY MD bridget Luo portion of n breast Cancer <Female; Center Right> multivitami 2020-04 Yes 1{tbl} Take 1 Un santiago n tab 1-05 tablet by ity of tablet 09:33: mouth [place] 02 daily. MD Puja gibbs [facility] cyanocobala 2020-04 Yes 1{tbl} Place 1 U nivers min-cobamam 1-05 tablet ity of joe 09:32: under the [place] 5,000-100 48 tongue MD ericka rodríguezg daily. [facility] cholecalcif 2020-04 Yes 5000U Take 5,000 Univers rom, 1-05 Units by ity of vitamin D3, 09:32: mouth [place] (VITAMIN 14 daily. D3) 5,000 Anderso units tab n tablet Cancer [place] letrozole 2020-04 No Infiltratin 2.5mg Take 1 Univers (Femara) 1-05 04-11 g duct tablet ity of 2.5 mg 00:00: 00:00 carcinoma, (2.5 mg) [place] tablet 00 :00 NOS of by mouth MD gill daily. Puja portion of n breast Cancer <Female; Center Right> ciprofloxac 2020-04 Yes 2{tbl} Take 2 Un santiago in HCl 1-01 tablets by ity of (CIPRO) 500 00:00: mouth [place] mg tablet 00 twice MD daily. [facility] nebivoloL Yes 20mg Take 20 mg Un santiago (Bystolic) 5-26 by mouth ity o f 20 mg 00:00: daily. [place] tablet 00 [facility] Nebivolol Nebivolol No 1{table QD Nebivolol HCl 20 MG HCl 20 MG t} HCl 20 MG Letrozole Letrozole No 1{table QD Letrozole 2.5 MG 2.5 MG t} 2.5 MG Nebivolol Nebivolol No 1{table QD Nebivolol HCl 20 MG HCl 20 MG t} HCl 20 MG Nebivolol Nebivolol No 1{table QD Nebivolol HCl 20 MG HCl 20 MG t} HCl 20 MG Nebivolol Nebivolol No 1{table QD Nebivolol HCl 20 MG HCl 20 MG t} HCl 20 MG Letrozole Letrozole No 1{table QD Letrozole 2.5 MG 2.5 MG t} 2.5 MG Nebivolol Nebivolol No 1{table QD Nebivolol HCl 20 MG HCl 20 MG t} HCl 20 MG Letrozole Letrozole No 1{table QD Letrozole 2.5 MG 2.5 MG t} 2.5 MG Nebivolol Nebivolol No 1{table QD Nebivolol HCl 20 MG HCl 20 MG t} HCl 20 MG Letrozole Letrozole No 1{table QD Letrozole 2.5 MG 2.5 MG t} 2.5 MG Nebivolol Nebivolol No 1{table QD Nebivolol HCl 20 MG HCl 20 MG t} HCl 20 MG Letrozole Letrozole No 1{table QD Letrozole 2.5 MG 2.5 MG t} 2.5 MG Nebivolol Nebivolol No 1{table QD Nebivolol HCl 20 MG HCl 20 MG t} HCl 20 MG Letrozole Letrozole No 1{table QD Letrozole 2.5 MG 2.5 MG t} 2.5 MG Letrozole Letrozole 2021- No 1{table QD Letrozole 2.5 MG 2.5 MG 03-20 t} 2.5 MG 00:00 :00 Letrozole Letrozole 2021- No 1{table QD Letrozole 2.5 MG 2.5 MG - t} 2.5 MG 00:00 :00 Immunizations Ordered Filled Immunization Date Status Comments Sourc e Immunization Name Name Boostrix (Tdap) Boostrix (Tdap) 2021-12-20 Completed Comm on 10:12:00 [facility] Boostrix (Tdap) Boostrix (Tdap) 2021-12-20 Completed Comm on Spirit - 10:12:00 [facility] Boostrix (Tdap) Boostrix (Tdap) 2021-12-20 Completed Comm on Spirit - 10:12:00 [facility] Boostrix (Tdap) Boostrix (Tdap) 2021-12-20 Completed Comm on Spirit - 10:12:00 [facility] Boostrix (Tdap) Boostrix (Tdap) 2021-12-20 Completed Comm on Spirit - 10:12:00 [facility] Boostrix (Tdap) Boostrix (Tdap) 2021-12-20 Completed Comm on Spirit - 10:12:00 [facility] Boostrix (Tdap) Boostrix (Tdap) 2021-12-20 Completed Comm on Spirit - 10:12:00 [facility] Boostrix (Tdap) Boostrix (Tdap) 2021-12-20 Completed Comm on Spirit - 10:12:00 [facility] SARS-COV-2 COVID-19 2020-07-15 Completed Unive rsity of MODERNA VACCINE 00:00:00 [facility] Moderna SARS-CoV-2 2020-07-15 Completed Univer sity of Vaccination 00:00:00 Peter Merr[facility] SARS-COV-2 COVID-19 2020-06-14 Completed Unive rsity of MODERNA VACCINE 00:00:00 [facility] Moderna SARS-CoV-2 2020-06-14 Completed Univer sity of Vaccination 00:00:00 Peter [facility] Vital Signs Vital Name Observation Time Observation Value Comments Source blood pressure 2022-01-24 16:10:00 135 mm[Hg] [facility] - systolic [facility] blood pressure 2022-01-24 16:10:00 70 mm[Hg] [facility] - diastolic [facility] height 2022-01-24 16:10:00 64.5 [in_i] Common S pirit - [facility] weight 2022-01-24 16:10:00 243 [lb_av] Common [facility] temperature 2022-01-24 16:10:00 97.6 [degF] Common [facility] bmi 2022-01-24 16:10:00 41.06 kg/m2 [facility] oximetry 2022-01-24 16:10:00 99 % [facility] respiratory rate 2022-01-24 16:10:00 18 /min Comm on [facility] height 2021-12-20 08:30:00 63.5 [in_i] [facility] weight 2021-12-20 08:30:00 238.3 [lb_av] Common [facility] temperature 2021-12-20 08:30:00 97.3 [degF] [facility] bmi 2021-12-20 08:30:00 41.55 kg/m2 [facility] oximetry 2021-12-20 08:30:00 98 % [facility] respiratory rate 2021-12-20 08:30:00 17 /min Comm on [facility] blood pressure 2021-12-20 08:30:00 132 mm[Hg] Common [facility] systolic [facility] blood pressure 2021-12-20 08:30:00 72 mm[Hg] [facility] diastolic [facility] Procedures This patient has no known procedures. Plan of Care Planned Activity Planned Date Details Comments Source Future Scheduled 2022-03-22 COVID-19 Vaccination Uni versity of [place] Test 09:09:54 (3 - Moderna risk MD Luo n Cancer series) [code = Center COVID-19 Vaccination (3 - Moderna risk series)] Encounters Start End Encounter Admission Attending Care Care Encounter Source Date/Time Date/Time Type Type Clinicians Facility Department ID 2021-12-20 [id number] Common 08:06:01 [facility] [id number] [facility] 2020-12-03 Outpatient SYSTEM, MAKAYLA BENAVIDES [id number] 08:12:25 PROVIDER Joce gibbs 2022-03-22 2022-03-22 Telephone Jack, 1.2.840.1 [id number] Univers 00:00:00 00:00:00 [place] 36181.1.1 ity of 3.412.2.7 [place] .3.191611 .8 [facility] 2022-03-22 2022-03-22 Telephone Jack, 1.2.840.1 [id number] Univers 00:00:00 00:00:00 Mer O 03092.1.1 ity of 3.412.2.7 [place] .3.728533 MD Donovan8 [facility] 2022-02-27 2022-02-27 Telephone Arin, 1.2.840.1 [id number] Univers 00:00:00 00:00:00 Mer O 68278.1.1 ity of 3.412.2.7 [place] .3.868966 MD Donovan8 [facility] 2022-02-23 2022-02-23 (TEL) STLMLC STLMLC [id number] Co mmon 00:00:00 00:00:00 [facility] 2022-02-16 2022-02-16 (TEL) STLMLC STLMLC [id number] Co mmon 00:00:00 00:00:00 [facility] 2022-02-15 2022-02-15 (TEL) STLMLC STLMLC [id number] Co mmon 00:00:00 00:00:00 [facility] 2022-02-09 2022-02-09 (TEL) STLMLC STLMLC [id number] Co mmon 00:00:00 00:00:00 [facility] 2022-01-24 2022-01-24 OFFICE STLMLC STLMLC [id number] Co mmon 00:00:00 00:00:00 VISIT EST Spir it PT LEVEL 3 [facility] 2022-01-02 2022-01-02 (TEL) STLMLC STLMLC [id number] Co mmon 00:00:00 00:00:00 Spirit - [facility] 2021-12-20 2021-12-20 [facility] [id number] Common 00:00:00 00:00:00 NEW AGE Timothy 40-64 - [facility] 2021-10-19 2021-10-19 Outpatient R KAYDEN, [facility] [id number] Univers 14:30:00 14:30:00 DONNA bolanos [facility] 2021-10-19 2021-10-19 Outpatient R KAYDEN, [facility] [id number] Univers 14:30:00 14:30:00 DONNAJOSÉ bolanos [facility] 2021-09-29 2021-09-29 [facility] 1.2.840.114 [id number] Univers 00:00:00 00:00:00 Donna A HEALTH 350.1.13.10 i ty of [place] 4.2.7.2.686 Wander as PAULINO?BLEA [phone] [address] OFFICE [facility] 2021-09-26 2021-09-26 [facility] 1.2.840.114 [id number] Univers 00:00:00 00:00:00 Donna A HEALTH 350.1.13.10 i ty of [place] 4.2.7.2.686 Wander as PAULINO?BLEA [phone] [address] 2021-09-26 2021-09-26 [facility]phone [facility] 1.2.184.256 [id number] Univers 00:00:00 00:00:00 Donna A HEALTH 350.1.13.10 i ty of [place] 4.2.7.2.686 Wander as PAULINO?BLEA [id number] [address] 2021-09-14 2021-09-14 [facility] 1.2.840.114 [id number] Univers 00:00:00 00:00:00 Niurka HEALTH 350.1.13.10 it y of [place] 4.2.7.2.686 Wander as PAULINO?BLEA [phone] [place] dicmiguel BAIRES [address] [facility] OFFICE [facility] 2021-08-18 2021-08-18 Telephone [facility] 1.2.138.224 [id number] Univers 00:00:00 00:00:00 Donna A HEALTH 350.1.13.10 i [facility] 4.2.7.2.686 Wander as PAULINO?BLEA [phone] [facility] [address] [facility] OFFICE [facility] 2021-08-15 2021-08-15 [facility] 1.2.840.114 [id number] Univers 00:00:00 00:00:00 Donna A HEALTH 350.1.13.10 i ty of [place] 4.2.7.2.686 Wander as PAULINO?BLEA [id number] [facility] 044 [facility] 2021-08-05 2021-08-05 Letter FABIOLA Weaver 1.2.840.114 [id number] Univers 00:00:00 00:00:00 (Out) Tamiko MCKOY 350.1.13.[address] [facility] 4.2.7.2.686 Wander as [id number] [address] 2021-08-04 2021-08-04 Outpatient R ALEXIS [facility] [id number] Univers 10:00:00 10:29:06 HA fitch [facility] 2021-08-04 2021-08-04 Laboratory Only, Ang Db Test [facility] 1.2.8 40.114 [id number] Univers 10:00:00 10:20:00 Only Ha Tucker HEALTH 350.1.13.10 ity of [place] 4.2.7.2.686 Wander as PAULINO?BLEA [id number] [facility] [address] [facility] OFFICE [facility] 2021-08-03 2021-08-03 [facility] [id number] Univers 14:30:00 14:30:00 DONNA ity of [facility] 2021-07-25 2021-07-25 Refill Roz Ford 1.2.840.1 [id number] Univers 00:00:00 00:00:00 59217.1.1 ity of 3.412.2.7 [place] .3.837676 MD .8 Puja gibbs [facility] 2021-07-21 2021-07-21 [facility] 1.2.840.114 [id number] Univers 00:00:00 00:00:00 Donna MOELLER 350.1.13.10 ity of [place] 4.2.7.2.686 [place] PROF[place] [id number] [place] dical NAL 044 [facility] 2021-06-30 2021-06-30 Refill [facility] 1.2.840.114 [id number] Univers 00:00:00 00:00:00 Semea MOELLER 350.1.13.10 ity [facility] 4.2.7.2.[place] [id number] [place] dical NAL 044 [facility] 2021-02-18 2021-02-18 Outpatient IZABELA ROZ FORD [facility] MDA [id number] 08:07:00 09:47:48 Joce o sai 2021-02-18 2021-02-18 Outpatient IZABELA MAX GAY MDA MDA [id number] 07:53:45 07:58:23 Joce o sai 2021-02-01 2021-02-01 Outpatient CATHLEEN, MDA MDA [id number] 13:28:53 13:53:47 VENKATA Quileser so n 2021-01-31 2021-01-31 Outpatient DAMARID, MDA MDA [id number] 13:21:53 13:47:51 VENKATA Quileser so n 2021-01-28 2021-01-28 Outpatient DAMARID, MDA MDA [id number] 13:25:49 13:35:22 VENKATA Quileser so n 2021-01-27 2021-01-27 Outpatient CHINOMAD, MDA MDA [id number] 13:27:41 13:45:08 VENKATA Quileser so n 2021-01-26 2021-01-26 Outpatient DAMARID, MDA MDA [id number] 13:36:01 14:13:07 NEELOFUR Andriy so n 2021-01-26 2021-01-26 Outpatient EL AHMAD, MDA MDA [id number] 13:35:19 13:54:02 NEELOFUR Andriy so n 2021-01-25 2021-01-25 Outpatient EL AHMAD, MDA MDA [id number] MD 13:15:23 13:54:52 NEELOFUR Andriy so n 2021-01-24 2021-01-24 Outpatient EL AHMAD, MDA MDA [id number] MD 09:32:38 10:33:11 NEELOFANTIONE Andriy so n 2021-01-24 2021-01-24 Outpatient EL MAX GAY MDA MDA [id number] MD 08:55:50 08:55:50 Joce o n 2021-01-21 2021-01-21 Outpatient EL AHMAD, MDA MDA [id number] 13:04:31 13:23:31 NEELOFANTIONE Andriy so n 2021-01-20 2021-01-20 Outpatient EL AHMAD, MDA MDA [id number] 13:13:02 13:34:54 NEELOFANTIONE Andriy so n 2021-01-19 2021-01-19 Outpatient EL AHMAD, MDA MDA [id number] 13:46:41 14:14:05 NEELOFANTIONE Andriy so n 2021-01-19 2021-01-19 Outpatient EL AHMAD, MDA MDA [id number] 13:44:32 14:09:40 NEELOFANTIONE Andriy so n 2021-01-19 2021-01-19 Outpatient EL AHMAD, MDA MDA [id number] 13:08:54 13:45:11 NEELOFANTIONE Andriy so n 2021-01-18 2021-01-18 Outpatient Jaya PALOMARES [facility] [id number] Univers 15:00:00 15:00:00 ZINA bolanos [facility] 2021-01-18 2021-01-18 Office Marielle [facility] 1.2.041.772 [id number] Univers 14:29:08 14:55:23 Visit Zina MOELLER 350.1.13.10 isauro [facility] 4.2.[place].2.[place] [phone] [place] dical [facility] [address] [facility] 2021-01-11 2021-01-11 Outpatient R [facility] [id number] Univers 13:45:00 13:45:00 ZINA bolanos [facility] 2021-01-11 2021-01-11 Office [facility] [id number] Univers 13:11:01 13:40:23 Visit Zina Moeller 350.1.13.10 i ty of [place] 4.2.7.2.[place] Profess[place] [phone] [address] 2021-01-10 2021-01-10 Outpatient IZABELA CONNOLLY MDA MDA [id number] 06:00:00 23:59:00 VENKATA de luna n 2021-01-05 2021-01-05 Orders Doctor HICKS 1.2.840.114 [id number] Univers 00:00:00 00:00:00 Only Unassigned, LEELEE 350.1.13.[address] [place] [facility] 4.2.7.2.686 Wander as [phone] [address] 2021-01-04 2021-01-04 Office [facility] 1.2.047.598 [id number] Univers 15:22:07 17:26:14 Visit Zina Moeller 350.1.13.10 i ty of [place] 4.2.[place].2.[place] Profess[place] [id number] [address] 2021-01-04 2021-01-04 [facility] [id number] Univers 16:00:00 16:00:00 ZINA elizabethenrique [facility] 2021-01-03 2021-01-03 Outpatient IZABELA CONNOLLY MDA MDA [id number] 12:42:58 13:40:30 VENKATA Ashraf so n 2020-12-31 2020-12-31 Outpatient IZABELA ESTRADA MDA MDA [id number] 11:32:49 11:44:57 LIVAN gibbs 2020-12-28 2020-12-28 Outpatient Jaya MCFARLANEJOHNSONREGINALDO [facility] [id number] Univers 13:00:00 13:00:00 ZINA bolanos [facility] 2020-12-24 2020-12-27 Outpatient IZABELA MALLORY MDA MDA [id number] 13:13:19 14:32:49 CELCRISS Joce o n 2020-12-27 2020-12-27 Outpatient IZABELA CONNOLLY MDA MDA [id number] 07:44:32 08:53:28 VENKATA Ashraf so n 2020-12-24 2020-12-24 Outpatient IZABELA MAX GAY [facility] MDA [id number] 16:05:52 16:18:59 Joce gibbs 2020-12-24 2020-12-24 Outpatient IZABELA MAX GAY MDA MDA [id number] 15:53:39 15:53:39 Joce gibbs 2020-12-24 2020-12-24 [facility] 1.2.840.114 [id number] Univers 15:24:02 15:39:02 Visit [facility] 350.1.13.10 it y of [place] [facility] 4.2.7.2.686 [facility] - [phone] Med ical [facility] [address] 2020-12-24 2020-12-24 Outpatient R RHIANNON [facility] [id number] Univers 15:24:02 15:24:02 GRACIELA bolanos [facility] 2020-12-24 2020-12-24 Outpatient ROZ LIPSCOMB MDA MDA [id number] 13:16:12 14:54:49 Joce gibbs 2020-12-21 2020-12-21 Orders Doctor FABIOLA 1.2.840.114 [id number] Univers 00:00:00 00:00:00 Only Unassigned, LEELEE 350.1.13.[address] [place] [facility] 4.2.7.2.686 Wander as [phone] [facility] [address] 2020-12-09 2020-12-09 Multidisci [facility] 1.2.840.114 [id number] Univers 00:00:00 00:00:00 plinary GracielaThreefold Photos 350.1.13.10 it y of Conference [place] [facility] 4.2.7.2.686 [facility] [phone] [facility] ica MDA [address] 2020-12-08 2020-12-08 Outpatient IZABELA MALLORY MDA MDA [id number] 04:05:12 04:05:12 LAYLA gibbs 2020-12-02 2020-12-02 Outpatient IZABELA MALLORY MDA MDA [id number] 13:44:12 13:44:12 LAYLA gibbs 2020-12-02 2020-12-02 Outpatient IZABELA MALLORY MDA MDA [id number] 13:43:57 13:43:57 LAYLA gibbs 2020-12-02 2020-12-02 Outpatient IZABELA MALLORY MDA MDA [id number] 13:43:56 13:43:56 LAYLA gibbs 2020-12-02 2020-12-02 [facility] [id number] Univers 00:00:00 00:00:00 SummitIG 350.1.13.[address] [facility] 4.2.7.2.686 Wander as [facility] [phone] [address] Office [facility] 2020-12-01 2020-12-01 Outpatient Jaya MONIQUE [facility] [id number] Univers 16:30:00 16:30:00 DONNA bolanos [facility] 2020-11-23 2020-11-23 Outpatient Jaya PALOMARES [facility] [id number] Univers 15:45:00 15:45:00 ZINA bolanos [facility] 2020-11-09 2020-11-09 Outpatient Jaya PALOMARES [facility] JACINTO [id number] Univers 07:25:00 14:47:00 ZINA bolanos [facility] 2020-11-09 2020-11-09 Outpatient SJ [facility] [id number] Univers 09:00:00 09:00:00 ARASH bolanos [facility] 2020-11-08 2020-11-08 Outpatient Jaya PALOMARES [facility] [id number] Univers 08:00:00 08:00:00 [facility] 2020-11-02 2020-11-02 Outpatient R MINOREGINALDO [facility] [id number] Univers 14:30:00 14:30:00 [facility] 2020-10-20 2020-10-20 Outpatient R VALERY [facility] [id number] Univers 10:00:00 10:00:00 ATTENDING [facility] 2020-10-12 2020-10-12 Outpatient R MARIELLE [facility] [id number] Univers 00:00:00 00:00:00 [facility] 2020-10-04 2020-10-04 Outpatient [facility] PITA [facility] SYSTEM [id number] Univers 08:26:25 08:26:[address] [facility] 2020-09-28 2020-09-28 Outpatient R MARIELLE [facility] [id number] Univers 15:45:00 15:45:00 [facility] 2020-09-08 2020-09-08 Outpatient R PITA [facility] [id number] Univers 10:00:00 10:00:00 SEEMA iglesias [facility] 2020-08-30 2020-08-30 [facility] [id number] Univers 10:00:00 10:00:00 SEEMA elizabethenrique iglesias [facility] 2019-07-01 2019-07-01 Outpatient R [facility] [id number] Univers 10:20:00 10:20:00 [facility] Results This patient has no known results.
[2022-06-30 10:06] LABS: Hematocrit 40.7 % (36.0-45.0); Lymphocytes % 22.1 % (15.3-44.8); MCV 92.9 fL (80-100); MPV 8.2 fL (7.6-11.3); RBC Red Blood Cell Count 4.38 M/uL (3.86-4.86)
[2022-06-30 10:19] LABS: Potassium 4.1 mEq/L (3.5-5.1); Troponin High Sensitivity 12.4 pg/mL (<58.9)
--- NOTE | 2022-06-30 10:20 | RAD REPORT ---
EXAM DESCRIPTION: CT - [id number] - 06/30/2022 9:41 am CLINICAL HISTORY: DIZZINESS. Syncopal episode COMPARISON: No comparisons TECHNIQUE: Axial thin cut noncontrast CT images of the head were obtained. Axial thin cut noncontrast CT images of the cervical spine were obtained. Multiplanar reformatted images were generated and reviewed. All CT scans are performed using dose optimization technique as appropriate and may include automated exposure control or mA/KV adjustment according to patient size. FINDINGS: CT HEAD WITHOUT CONTRAST: No acute hemorrhage, hydrocephalus or extra-axial collection is identified.No areas of brain edema or midline shift. The paranasal sinuses and mastoids are clear.The calvarium is intact. CT CERVICAL SPINE WITHOUT CONTRAST: No fracture or subluxation.No prevertebral soft tissues swelling is identified. Multilevel cervical spine degenerative changes without significant bony central canal stenosis. Up to moderate neural for aminal narrowing bilaterally at C5-6. IMPRESSION: No acute traumatic intracranial or cervical spine findings. Cervical spine degenerative changes as above.
--- NOTE | 2022-06-30 10:48 | ER ---
Nurse's Notes [facility] Name: Becca De Leon Age: 61 yrs Sex: Female : 1960 Arrival Date: 06/30/2022 Time: 09:10 Bed 3 Private MD: Herrera Coulter Diagnosis: Paresthesia of skin Presentation: 06/30 09:12 Chief complaint: Multiple near syncopal episodes that started upon waking today. Pt hb stated "I keep feeling like a weird electricity zap of hot and cold up my neck to the back of my head and left arm and feel like I am going to pass out, it has happened when I am sitting, about 6 times today already.". Coronavirus screen: At this time, the client does not indicate any symptoms associated with coronavirus-19. Ebola Screen: No symptoms or risks identified at this time. Risk Assessment: Do you want to hurt yourself or someone else? Patient reports no desire to harm self or others. Onset of symptoms was June 30, 2022. 09:12 Method Of Arrival: Ambulatory 09:12 Acuity: DINORAH 3 hb Triage Assessment: 09:15 General: Appears distressed, obese, Behavior is cooperative, appropriate for age, bp anxious. Pain: Complains of pain in back of neck. EENT: No deficits noted. Neuro: Reports NEAR-SYNCOPE. Cardiovascular: No deficits noted. Respiratory: No deficits noted. GI: No signs and/or symptoms were reported involving the gastrointestinal system. : No signs and/or symptoms were reported regarding the genitourinary system. Derm: No deficits noted. Musculoskeletal: No deficits noted. Historical: - Allergies: :15 No Known Allergies; hb - Home Meds: :15 Bystolic 20 mg Oral tab 1 tab once daily [Active]; hb - PMHx: :15 Hypertension; breast cancer L side; hb - Immunization history:: Adult Immunizations up to date. - Social history:: Smoking status: Patient denies any tobacco usage or history of. Screenin:15 [facility] ED Fall Risk Assessment (Adult) History of falling in the last 3 months, bp including since admission No falls in past 3 months (0 pts). Abuse screen: Denies threats or abuse. Denies injuries from another. Nutritional screening: No deficits noted. Tuberculosis screening: No symptoms or risk factors identified. Assessment: 09:15 General: SEE TRIAGE NOTE. bp 10:42 Reassessment: Patient appears in no apparent distress at this time. Patient states bp symptoms have improved. Vital Signs: 09:12 BP 138 / 109; Pulse 88; Resp 08; Temp 97.8; Pulse Ox 100% on R/A; Weight 108.86 kg; hb Height 5 ft. 5 in. ; Pain 0/10; 10:37 BP 150 / 82; Pulse 60; Resp 17; Pulse Ox 98% ; bp 09:12 Body Mass Index 39.94 (108.86 kg, 165.1 cm) hb 09:12 Pain Scale: Adult hb NIH Stroke Scale Scores: 09:19 NIHSS Score: [address] [facility] ED Course: 09:10 Patient arrived in ED. mr 09:10 Herrera Coulter DO is Private Physician. mr 09:10 Lissette [facility]adeo FNP [facility] 09:11 Aydin Barajas MD is Attending Physician. [facility] 09:15 Triage completed. hb 09:15 Arm band placed on. hb 09:15 Patient has correct armband on for positive identification. Bed in low position. Call bp light in reach. Side rails up X2. 09:18 Nando Escobar, RN is Primary Nurse. bp 09:33 EKG done, by ED staff. tm3 09:42 CT Head C Spine In Process Unspecified. EDMS 09:49 XRAY Chest (1 view) In Process Unspecified. EDMS 09:57 Initial lab(s) drawn, by vt, sent to lab. Inserted saline lock: 22 gauge in left tm3 antecubital area, using aseptic technique. 10:45 Herrera Coulter DO is Referral Physician. [facility] Administered Medications: No medications were administered Medication: 09:15 VIS not applicable for this client. bp Outcome: 10:48 Discharge ordered by . Gisela NIH Stroke Scale - NIH Stroke Score Date: 06/30/2022 Time: 09:19 Total Score = 0 10. Dysarthria (speech clarity - read or repeat words) - 0(Normal) 11. Extinction and Inattention (visual/tactile/auditory/spatial/personal) - 0(No abnormality) 1a. Level of Consciousness (LOC) - 0(Alert) 1b. Level of Consciousness (LOC) (Month \\T\\ Age) - 0(Both) 1c. LOC Commands (Open \\T\\ Closes Eyes/Operations Manager) - 0(Both) 2. Best Gaze (Lateral Gaze Paresis) - 0(Normal) 3. Visual Field Loss - 0(No visual loss) 4. Facial Palsy - 0(Normal) 5a. Left Arm: Motor (10-second hold) - 0(No drift) 5b. Right Arm: Motor (10-second hold) - 0(No drift) 6a. Left Leg: Motor (5-second hold - always test supine) - 0(No drift) 6b. Right Leg: Motor (5-second hold - always test supine) - 0(No drift) 7. Limb Ataxia (finger/nose \\T\\ heel/sellers - test with eyes open) - 0(Absent) 8. Sensory Loss (pinprick arms/legs/face) - 0(Normal) 9. Best Language: Aphasia (description/naming/reading) - 0(No aphasia) Initials: [facility] Signatures: Dispatcher [employer] EDIsidro Vaca 3 Tiffani Bravo Heather, RN RN Nando Wasserman, RN RN bp Lissette Tadeo, DIRECTOR OF SOCIAL SERVICES DIRECTOR OF SOCIAL SERVICES 7
--- NOTE | 2022-06-30 10:48 | EDPHYS ---
Physician Documentation [facility] Name: Becca De Leon Age: 61 yrs Sex: Female : 1960 Arrival Date: 06/30/2022 Time: 09:10 Bed 3 Private MD: [facility] ED Physician Aydin Barajas HPI: 06/30 09:19 This 61 yrs old Female presents to ER via Ambulatory with complaints of Neck problem, jh7 Doesn't Feel Right. 09:19 Onset: The symptoms/episode began/occurred at 05:00. Associated signs and symptoms: jh7 Pertinent positives: L arm tingling, dizziness. 61-year-old female presents with shooting feelings in the left side of her neck starting at 5:00 this morning. Reports that she began feeling zaps from the left side of her neck shooting up to her head with left arm tingling starting this morning. Reports that this feeling is not reproducible and that she first experienced it while watching TV. Also reports slight dizziness and palpitations occurring last night. Reports that symptoms are intermittent and she does not feel them right now. Patient of Dr. Coulter. History of hypertension and breast cancer. Denies syncope, weakness, speech changes, or visual changes.. Historical: - Allergies: 09:15 No Known Allergies; hb - Home Meds: 09:15 Bystolic 20 mg Oral tab 1 tab once daily [Active]; hb - PMHx: 09:15 Hypertension; breast cancer L side; hb - Immunization history:: Adult Immunizations up to date. - Social history:: Smoking status: Patient denies any tobacco usage or history of. ROS: 09:19 Constitutional: Negative for fever, chills, and weight loss, Eyes: Negative for injury, jh7 pain, redness, and discharge, ENT: Negative for injury, pain, and discharge, Neck: Negative for injury, pain, and swelling, Cardiovascular: Negative for chest pain, palpitations, and edema, Respiratory: Negative for shortness of breath, cough, wheezing, and pleuritic chest pain, Abdomen/GI: Negative for abdominal pain, nausea, vomiting, diarrhea, and constipation, Back: Negative for injury and pain, MS/Extremity: Negative for injury and deformity, Skin: Negative for injury, rash, and discoloration. 09:19 Neuro: Positive for dizziness, tingling, Negative for altered mental status, headache, numbness, syncope, near syncope, visual changes, weakness. 09:19 All other systems are negative. Exam: 09:19 Constitutional: This is a well developed, well nourished patient who is awake, alert, jh7 and in no acute distress. Head/Face: Normocephalic, atraumatic. Eyes: Pupils equal round and reactive to light, extra-ocular motions intact. Lids and lashes normal. Conjunctiva and sclera are non-icteric and not injected. Cornea within normal limits. Periorbital areas with no swelling, redness, or edema. Neck: Trachea midline, no thyromegaly or masses palpated, and no cervical lymphadenopathy. Supple, full range of motion without nuchal rigidity, or vertebral point tenderness. No Meningismus. Cardiovascular: Regular rate and rhythm with a normal S1 and S2. No gallops, murmurs, or rubs. Normal PMI, no JVD. No pulse deficits. Respiratory: Lungs have equal breath sounds bilaterally, clear to auscultation and percussion. No rales, rhonchi or wheezes noted. No increased work of breathing, no retractions or nasal flaring. Back: No spinal tenderness. No costovertebral tenderness. Full range of motion. Skin: Warm, dry with normal turgor. Normal color with no rashes, no lesions, and no evidence of cellulitis. MS/ Extremity: Pulses equal, no cyanosis. Neurovascular intact. Full, normal range of motion. 09:19 Neuro: Orientation: to person, place, time \T\ situation. Mentation: is normal, Memory: is normal, Cranial nerves: grossly normal, Cerebellar function: is grossly normal, Motor: is normal, Sensation: is normal, Gait: is steady. Vital Signs: 09:12 BP 138 / 109; Pulse 88; Resp 08; Temp 97.8; Pulse Ox 100% on R/A; Weight 108.86 kg; hb Height 5 ft. 5 in. ; Pain 0/10; 10:37 BP 150 / 82; Pulse 60; Resp 17; Pulse Ox 98% ; bp 09:12 Body Mass Index 39.94 (108.86 kg, 165.1 cm) hb 09:12 Pain Scale: Adult hb NIH Stroke Scale Scores: 09:19 NIHSS Score: 0 jh7 MDM: 09:11 Patient medically screened. [facility] 06/30 09:19 Order name: EKG; Complete Time: 09:21 [facility] 06/30 09:19 Order name: EKG - Nurse/Tech; Complete Time: 09:32 [facility] 06/30 09:19 Order name: Cardiac monitoring; Complete Time: 09:32 [facility] 06/30 09:19 Order name: O2 Sat Monitoring; Complete Time: 09:32 [facility] 06/30 09:19 Order name: O2 Per Protocol; Complete Time: 09:32 [facility] 06/30 09:19 Order name: XRAY Chest (1 view) [facility] 06/30 09:19 Order name: Labs collected and sent; Complete Time: 09:57 [facility] 06/30 09:19 Order name: IV Saline Lock; Complete Time: 09:57 [facility] 06/30 09:19 Order name: Basic Metabolic Panel; Complete Time: 10:23 [facility] 06/30 09:19 Order name: CBC with Diff; Complete Time: 10:23 [facility] 06/30 09:19 Order name: Troponin HS; Complete Time: 10:23 [facility] 06/30 09:19 Order name: CT Head C Spine; Complete Time: 10:23 [facility] EC:25 Rate is 64 beats/min. Rhythm is regular. QRS [place] is Normal. WA interval is normal at [facility] 178 msec. QRS interval is normal at 78 msec. QT interval is normal at 390 msec. No Q waves. T waves are Normal. No ST changes noted. Clinical impression: Normal sinus rhythm. Administered Medications: No medications were administered Disposition Summary: 06/30/22 10:48 Discharge Ordered Location: Home [facility] Problem: new [facility] Symptoms: are resolved [facility] Condition: Stable [facility] Diagnosis - Paresthesia of skin [facility] Followup: [facility] - With: Herrera Coulter DO - When: 2 - 3 days - Reason: Recheck today's complaints Forms: - Medication Reconciliation Form [facility] - Thank You Letter [facility] - Antibiotic Education [facility] - Prescription Opioid Use [facility] NIH Stroke Scale - NIH Stroke Score Date: 06/30/2022 Time: 09:19 Total Score = 0 10. Dysarthria (speech clarity - read or repeat words) - 0(Normal) 11. Extinction and Inattention (visual/tactile/auditory/spatial/personal) - 0(No abnormality) 1a. Level of Consciousness (LOC) - 0(Alert) 1b. Level of Consciousness (LOC) (Month \T\ Age) - 0(Both) 1c. LOC Commands (Open \T\ Closes Eyes/Administrative Services Manager) - 0(Both) 2. Best Gaze (Lateral Gaze Paresis) - 0(Normal) 3. Visual Field Loss - 0(No visual loss) 4. Facial Palsy - 0(Normal) 5a. Left Arm: Motor (10-second hold) - 0(No drift) 5b. Right Arm: Motor (10-second hold) - 0(No drift) 6a. Left Leg: Motor (5-second hold - always test supine) - 0(No drift) 6b. Right Leg: Motor (5-second hold - always test supine) - 0(No drift) 7. Limb Ataxia (finger/nose \T\ heel/sellers - test with eyes open) - 0(Absent) 8. Sensory Loss (pinprick arms/legs/face) - 0(Normal) 9. Best Language: Aphasia (description/naming/reading) - 0(No aphasia) Initials: [facility] Signatures: Dispatcher [employer] EDMarva Leonard RN RN Nando Wasserman RN RN bp Lissette Tadeo, PRIMARY TEACHER PRIMARY TEACHEREncompass Health Rehabilitation Hospital of Scottsdale
--- NOTE | 2022-06-30 10:56 | RAD REPORT ---
EXAM DESCRIPTION: Pilar Single View06/30/2022 9:48 am CLINICAL HISTORY: MALAISE COMPARISON: Chest Pa And Lat (2 Views) dated 11/08/2017; Chest Single View dated 09/01/2017; Chest Sin gle View dated 06/12/2017 TECHNIQUE: Portable AP view of the chest. FINDINGS: The lungs are clear.Mild left basilar atelectasis. No pneumothorax or effusion. The cardio mediastinal contours are unremarkable. IMPRESSION: No acute cardiopulmonary process.
--- NOTE | 2022-07-03 17:43 | EKG ---
Test Date: 2022-06-30 Test Time: 09:25:57 Ag Service Manager: TM MEASUREMENT RESULTS: Intervals: Rate: 64 IL: 178 QRSD: 78 QT: 390 QTc: 402 [place]: P: 26 IL: 178 QRS: 12 T: 41 INTERPRETIVE STATEMENTS: Normal sinus rhythm Minimal voltage criteria for LVH, may be normal variant Borderline ECG Compared to ECG 11/08/2017 15:21:29 Left ventricular hypertrophy now present Sinus bradycardia no longer present Electronically Signed On 07-03-22 17:37:33 CDT by Froylan Pak
== END 2022-06-30 11:05 | disposition home or self-care (01) ==
LOC: ER 09:07
DX: R20.2 Paresthesia of skin (principal); R42 Dizziness and giddiness; I10 Essential (primary) hypertension; Z85.3 Personal history of malignant neoplasm of breast
CPT/HCPCS: 36415; 70450; 71045; 72125; 80048; 84484; 85025; 93005; 99284

== ENCOUNTER 2022-09-22 12:41 | Emergency (ER) | payer BC ==
--- OUTSIDE RECORDS SUMMARY | 2022-09-22 12:50 | XMS REPORT | Clinical Summary ---
:1960 Author Organization [facility] MD Ashraf [facility] Address [address] [place] [address] Care Team Providers Name Role Phone Annia Cerda MD Unavailable Betty Larkin MD Unavailable Chester [place] MD Unavailable Gladys Martínez Unavailable Joanne Malone MD Unavailable Dhiraj Wayne MD Unavailable Roz aPrk MD Primary Care Provider Nadege Nelson MD Unavailable Unavailable Allergies No known active allergies Medications Medication Sig Dispensed Refills Start Date End Date Status nebivoloL (Bystolic) 20 Take 20 mg by 0 09/08/2020 Active mg tablet mouth daily. ciprofloxacin HCl Take 2 tablets by 0 02/14/2021 Active (CIPRO) 500 mg tablet mouth twice daily. cholecalciferol, Take 5,000 Units 0 Active vitamin D3, (VITAMIN by mouth daily. D3) 5,000 units tab tablet cyanocobalamin-cobamami Place 1 tablet 0 Active de 5,000-100 mcg lozg under the tongue daily. multivitamin tab tablet Take 1 tablet by 0 Active mouth daily. letrozole (FEMARA) 2.5 TAKE 1 TABLET BY 90 tablet 1 07/25/2021 Active mg tabletIndications: MOUTH EVERY DAY Infiltrating duct carcinoma, NOS of central portion of breast <Female; Right> Active Problems Patient Care Coordination Note Formatting of this note might be differe nt from the original. 12/31/2020 [facility] COVID test results: not detected Problem Noted Date Vitamin D deficiency 02/18/2021 Postmenopausal osteopenia 02/18/2021 Estrogen receptor positive status (ER+) 12/24/2020 Morbid obesity 11/16/2020 Infiltrating duct carcinoma of central portion of righ t female breast 05/20/2013 Cancer Staging: Pathologic stage from 01/2021: Stage IA (pT2, pN0(sn), cM0, G2, ER+, MN+, HER2-, Oncotype DX score: 3) - Signed by Roz Park MD on 12/26/2020 Personal history of malignant neoplasm of breast Overview: Idc and dcis Encounters Date Type Specialty Care Team Description 03/22/2022 Telephone Oncology Mer Hinkle RN 03/22/2022 Telephone Oncology Mer Hinkle RN 02/27/2022 Telephone Oncology Mer Hinkle RN after 09/22/2021 Immunizations Name Administration Dates Next Due Moderna SARS-CoV-2 Vaccination 07/15/2020, 06/14/2020 Surgical History Surgery Date Site/Laterality Comments COLONOSCOPY BREAST LUMPECTOMY 2012 and 2020 Left 2013 zach anibal and Right 2020 removed STOMACH [...] Relation Name Comments -Other cancer Mother Aakash Cyr Mandibular Ovarian cancer Sister Sonia Keller Stage 1 2013 Relation Name Status Comments Mother Aakash Cyr [...] COVID-19 Vaccination (3 - Moderna risk 08/12/2020 1, 06/14/2020 series) Results Not on fileafter 09/22/2021 Insurance Payer Benefit Plan / Subscriber ID Effective Dates Phone Addre ss Type Group [place] [id number] 2019-Present [address] [id number] HMO BLUE SHIELD BLUE/[place] [employer] [id number] GingercarlaRoebrta Personal/Family Self 1960 [id number] (Home) [place] [phone] [id number] (Work) Care Teams Skating Carhop Relationship Specialty Start Date End Date Roz Park MD PCP - General Medical Oncology 12/09/20 [facility] [place] [address] Annia Cerda MD Physician 06/23/15 [address] [place] [address] Betty Larkin MD Physician 06/23/[address] [place] [id number] Chester [place] MD Physician 06/23/[address] [place] [phone] Gladys Martínez PA Physician Excel Developer 06/23/[address], [address] [address] Joanne Malone MD Physician 06/23/[address] [place] [id number] Dhiraj Wayne MD Physician 06/23/[address] [place] [id number] Nadege Nelson MD Physician Radiation Oncology 01/25/[address] [place] [id number]
--- OUTSIDE RECORDS SUMMARY | 2022-09-22 12:51 | XMS REPORT | Continuity of Care Document ---
:1960 Author Organization [facility] t Address [address] [facility] [address] [place] [address] Care Team Providers Name Role Phone Roz Ford MD Primary Care Physician Herrera Coulter Attending Clinician Unavailable SYSTEM, PROVIDER NOT IN Attending Clinician Unavailable RAJESH WESTBROOK Attending Clinician Unavailable COLBY SANDERSON Attending Clinician Unavailable COLBY SANDERSON Attending Clinician Unavailable Rajesh Westbrook MD Attending Clinician WAYLON GONZALEZ Attending Clinician Unavailable Waylon Gonzalez MD Attending Clinician Doctor Unassigned, [place] Attending Clinician Unavailable Ubaldo Rosado MD Attending Clinician Mer Hinkle RN Attending Clinician Unavailable DONNA MONIQUE Attending Clinician Unavailable Donna Mederos Attending Clinician Niurka Mosher Attending Clinician Tamiko Weaver RN Attending Clinician Unavailable RENITA TUCKRE Attending Clinician Unavailable Only, Ang Db Test Attending Clinician Unavailable Renita Weston Attending Clinician Roz Ford MD Attending Clinician Tracy Rodriguez Attending Clinician ROZ FORD Attending Clinician Unavailable MAX GAY Attending Clinician Unavailable VENKATA CONNOLLY Attending Clinician Unavailable ZINA PALOMARES Attending Clinician Unavailable Zina Palomares MD Attending Clinician LIVAN ESTRADA Attending Clinician Unavailable LAYLA SHEEHAN Attending Clinician Unavailable Graciela Jurado MD Attending Clinician GRACIELA JURADO Attending Clinician Unavailable ARASH GUSTAFSON Attending Clinician Unavailable UNKNOWN, ATTENDING Attending Clinician Unavailable TRACY LEMA Attending Clinician Unavailable ZINA PALOMARES Admitting Clinician Unavailable Payers Payer Name Policy Type Policy Number Effective Date Expiration Date Ramirez logan [facility] [id number] 2019 00:00:00 SELECT Problems Condition Condition Condition Status Onset Resolution Last Treating Co mments Source Name Details Category Date Date Treatment Clinician Date Vitamin D Vitamin D Disease Active 2020-04 Uni vers deficiency deficiency 1-05 it y of 00:00: [place] 00 MD Puja gibbs [facility] Postmenopa Postmenopa Disease Active 2020-04 U merle usal usal 1-05 [place]y of osteopenia [place] [facility] Estrogen Estrogen Disease Active Unive rs receptor receptor 9-10 ity of positive positive 00:00: [place] status status 00 (ER+) (ER+) [facility] Morbid Morbid Disease Active Univers obesity obesity 8-03 ity of 00:00: [place] 00 MD Puja gibbs [facility] Malignant Malignant Disease Active Overview: Univers neoplasm neoplasm 7-21 Formattin ity of of right of right 00:00: g of this [place] as female female 00 note Medical breast, breast, might be Branch unspecifie unspecifie different d estrogen d estrogen from the receptor receptor original. 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 Center Idc and dcis [id number] Morbid Problem Commo n 9104 (severe) Spirit obesity - [facility] due to [facility] [id number] Essential Problem Comm on (primary) [facility] hypertensi - [facility] on [facility] [id number] Body mass Problem Com mon index [facility] [BMI] - CHI 40.0-44.9, [facility] [id number] Infiltrati Problem Co mmon ng ductal [facility] carcinoma [facility], [facility] [id number] Abnormal Problem Com mon [id number] CT scan, [facility] chest - [facility] Allergies, Adverse Reactions, Alerts Allergy Allergy Status Severity Reaction(s) Onset Inactive Treating Comm ents Source Name Type Date Date Clinician NO KNOWN Drug Active Univers ALLERGIE Class ity of S [facility] Family History Family Member Diagnosis Comments Start Date Stop Date Source Natural mother -Other cancer [facility] [place] [facility] [place] C[facility] r [place] Natural sister Ovarian cancer Univer sity [facility] [place] [facility] [place] Social History Social Habit Start Date Stop Date Quantity Comments Source History SDOH University o f Alcohol Frequency [facility] History [facility] University o f Alcohol Std Drinks [facility] History formerly [facility] o f Alcohol Binge [facility] al [facility] Sex Assigned At Common Sp stephanie - [facility] Exposure to 2022-08-15 2022-08-25 Not sure University of SARS-CoV-2 (event) 00:00:00 05:53:00 [facility] Cigarettes smoked 2022-07-05 2022-07-05 Univers ity of current (pack per 00:00:00 00:00:00 [facility] ) - Reported Branch Alcohol intake 2020-12-27 2020-12-27 Current drinker Unive rsity of 00:00:00 00:00:00 of alcohol Peter J[facility]riy [facility] (finding) [facility] Cigarette 2020-12-24 2020-12-24 University of pack-years 00:00:00 00:00:00 [facility] Tobacco use and 2020-12-24 2020-12-24 Former smokeless Uni versity of exposure 00:00:00 00:00:00 tobacco user [facility] Alcohol Comment 2020-09-08 2020-09-08 wine once a week Uni versity of 00:00:00 00:00:00 [facility] History of tobacco 2012-09-08 Cigarette Smoker University of use 00:00:00 [facility] Smoking Status Start Date Stop Date Source Ex-smoker 2020-12-24 00:00:00 2020-12-24 00:00:00 [facility] Medications Ordered Filled Start Stop Current Ordering Indication Dosage Frequency Signature Comments Components Source Medication Medication Date Date Medication? Clinician (SIG) Name Name multivitami Yes 1{tbl} Take 1 Un santiago n with 5-12 tablet by ity of folic acid 10:33: mouth [place] 400 mcg Tab 06 every Medical morning. Branch Cholecalcif Yes 5000U Take 1 Uni vers rom, 5-12 tablet by ity of Vitamin D3, 10:33: [place] 125 mcg 06 Medical (5,000 Branch unit) tablet multivitami Yes 1{tbl} Take 1 Un [place] n with 5-12 tablet by ity of folic acid 10:33: mouth [place] 400 mcg Tab 06 every Medical morning. Branch Cholecalcif Yes 5000U Take 1 Uni vers rom, 5-12 tablet by ity of Vitamin D3, 10:33: [place] 125 mcg 06 Medical (5,000 Branch unit) tablet apixaban 5 Yes 1358 5mg Take 1 Unive rs mg tablet 4-07 tablet by ity o f 00:00: mouth in [place] 00 the Medical morning Branch and 1 tablet in the evening. Indication s: atrial fibrillati on apixaban 5 2022-0 Yes 1358 5mg Take 1 Unive rs mg tablet 4-07 tablet by ity o f 00:00: mouth in [place] 00 the Medical morning Branch and 1 tablet in the evening. Indication s: atrial fibrillati on apixaban 5 2022-0 Yes 1358 5mg Take 1 Unive rs mg tablet 4-07 tablet by ity o f 00:00: mouth in [place] 00 the Medical morning Branch and 1 tablet in the evening. Indication s: atrial fibrillati on letrozole Yes TAKE 1 Univer s 2.5 mg 3-17 TABLET BY ity of tablet 00:00: MOUTH [place] 00 EVERY DAY Medical FOR 90 Branch DAYS letrozole 2022-0 Yes TAKE 1 Univer s 2.5 mg 3-17 TABLET BY ity of tablet 00:00: MOUTH [place] 00 EVERY DAY Medical FOR 90 Branch DAYS NEBIVOLOL 2021-0 Yes [id number] 20mg TAKE 1 Un [place]antiago 20 mg 6-22 TABLET BY ity of tablet 00:00: MOUTH [place] 00 DAILY. Medical FOLLOW-UP Branch FOR REFILLS AND FASTING LABS. NEBIVOLOL 2021-0 Yes [id number] 20mg TAKE 1 Un [place] 20 mg 6-22 TABLET BY ity of tablet 00:00: MOUTH [place] 00 DAILY. Medical FOLLOW-UP Branch FOR REFILLS AND FASTING LABS. NEBIVOLOL 2021-0 Yes [id number] 20mg TAKE 1 Un [place] 20 mg 6-22 TABLET BY ity of tablet 00:00: MOUTH [place] 00 DAILY. Medical FOLLOW-UP Branch FOR REFILLS AND FASTING LABS. NEBIVOLOL 2021-0 Yes [id number] 20mg TAKE 1 [place] 20 mg 6-22 TABLET BY ity of tablet 00:00: MOUTH [place] 00 DAILY. Medical FOLLOW-UP Branch FOR REFILLS AND FASTING LABS. NEBIVOLOL 2-0 Yes [id number] 20mg TAKE 1 Un [place] 20 mg 6-22 TABLET BY ity of tablet 00:00: MOUTH [place] 00 DAILY. Medical FOLLOW-UP Branch FOR REFILLS AND FASTING LABS. NEBIVOLOL 2-0 Yes [id number] 20mg TAKE 1 [place] 20 mg 6-22 TABLET BY ity of tablet 00:00: MOUTH [place] 00 DAILY. Medical FOLLOW-UP Branch FOR REFILLS AND FASTING LABS. NEBIVOLOL 2-0 Yes [id number] 20mg TAKE 1 [place] 20 mg 6-22 TABLET BY ity of tablet 00:00: MOUTH [place] 00 DAILY. Medical FOLLOW-UP Branch FOR REFILLS AND FASTING LABS. NEBIVOLOL 2022-0 Yes [id number] 20mg TAKE 1 Un [place] 20 mg 6-22 TABLET BY ity of tablet 00:00: MOUTH [place] 00 DAILY. Medical FOLLOW-UP Branch FOR REFILLS AND FASTING LABS. NEBIVOLOL 2021-0 Yes [id number] 20mg TAKE 1 [place] 20 mg 6-22 TABLET BY ity of tablet 00:00: MOUTH [place] 00 DAILY. Medical FOLLOW-UP Branch FOR REFILLS AND FASTING LABS. NEBIVOLOL 2021-0 Yes [id number] 20mg TAKE 1 [place] 20 mg 6-22 TABLET BY ity of tablet 00:00: MOUTH [place] 00 DAILY. Medical FOLLOW-UP Branch FOR REFILLS AND FASTING LABS. NEBIVOLOL 2021-0 Yes [id number] 20mg TAKE 1 [place] 20 mg 6-22 TABLET BY ity of tablet 00:00: MOUTH [place] 00 DAILY. Medical FOLLOW-UP Branch FOR REFILLS AND FASTING LABS. NEBIVOLOL 2021-0 Yes [id number] 20mg TAKE 1 [place] 20 mg 6-22 TABLET BY ity of tablet 00:00: MOUTH [place] 00 DAILY. Medical FOLLOW-UP Branch FOR REFILLS AND FASTING LABS. NEBIVOLOL 2021-0 Yes [id number] 20mg TAKE 1 [place] 20 mg 6-22 TABLET BY ity of tablet 00:00: MOUTH [place] 00 DAILY. Medical FOLLOW-UP Branch FOR REFILLS AND FASTING LABS. NEBIVOLOL 0 Yes [id number] 20mg TAKE 1 [place] 20 mg 6-22 TABLET BY ity of tablet 00:00: MOUTH [place] 00 DAILY. Medical FOLLOW-UP Branch FOR REFILLS AND FASTING LABS. Nebivolol 2021- No [id number] 20mg Take 1 U nivers 20 mg [...] of n breast Cancer <Female; Center Right> letrozole Yes Infiltratin TAKE 1 Univers (FEMARA) 4-11 g duct TABLET BY ity of 2.5 mg 00:00: carcinoma, MOUTH [place] tablet 00 NOS of EVERY DAY MD bridget Luo portion of n breast Cancer <Female; Center Right> multivitami 2020-04 Yes 1{tbl} Take 1 Un [place]antiago n tab 1-05 tablet by ity of tablet 09:33: mouth [place] 02 daily. MD Puja gibbs [facility] multivitami 2020-04 Yes 1{tbl} Take 1 Un [place]antiago n tab 1-05 tablet by ity of tablet 09:33: mouth [place] 02 daily. MD Puja gibbs [facility] cyanocobala 2020-04 Yes 1{tbl} Place 1 U nivers min-cobamam 1-05 tablet ity of joe 09:32: under the [place] 5,000-100 48 tongue mcg lozg daily. [facility] cyanocobala 2020-04 Yes 1{tbl} Place 1 U nivers min-cobamam 1-05 tablet ity of joe 09:32: under the [place] 5,000-100 48 tongue mcg lozg daily. [facility] cholecalcif 2020-04 Yes 5000U Take 5,000 Univers rom, 1-05 Units by ity of vitamin D3, 09:32: mouth [place] (VITAMIN 14 daily. D3) 5,000 Anderso units tab n tablet [facility] cholecalcif 2020-04 Yes 5000U Take 5,000 Univers rom, 1-05 Units by ity of vitamin D3, 09:32: mouth [place] (VITAMIN 14 daily. D3) 5,000 Anderso units tab n tablet [facility] letrozole 2020-04- No Infiltratin 2.5mg Take 1 Univers (Femara) 1-05 04-11 g duct tablet ity of 2.5 mg 00:00: 00:00 carcinoma, (2.5 mg) [place] tablet 00 :00 NOS of by mouth central daily. Anderso portion of n breast Cancer <Female; Center Right> ciprofloxac 2020-04 Yes 2{tbl} Take 2 Un [place]antiago in HCl 1-01 tablets by ity of (CIPRO) 500 00:00: mouth [place] mg tablet 00 twice MD daily. [facility] ciprofloxac 2020-04 Yes 2{tbl} Take 2 Un [place] in HCl 1-01 tablets by ity of (CIPRO) 500 00:00: mouth [place] mg tablet 00 twice MD daily. [facility] nebivoloL Yes 20mg Take 20 mg Un [place] (Bystolic) 5-26 by mouth ity o f 20 mg 00:00: daily. [place] tablet 00 MD Puja gibbs [facility] nebivoloL 2020-0 Yes 20mg Take 20 mg [place] (Bystolic) 5-26 by mouth ity o f 20 mg 00:00: daily. [place] tablet 00 [facility] Neb[facility]ol Nebivolol No 1{table QD Nebivolol HCl [...] MG 03-20 t} 2.5 MG 00:00 :00 Immunizations Ordered Filled Immunization Date Status Comments [facility] e Immunization Name Name Boostrix (Tdap) Boostrix (Tdap) 2021-12-20 Completed Comm on Spirit - 10:12:00 [facility] Boostrix (Tdap) Boostrix (Tdap) 2021-12-20 Completed Comm on [facility] - 10:12:00 [facility] Boostrix (Tdap) Boostrix (Tdap) 2021-12-20 Completed Comm on [facility] - 10:12:00 [facility] Boostrix (Tdap) Boostrix (Tdap) 2021-12-20 Completed Comm on Spirit - 10:12:00 [facility] Boostrix (Tdap) Boostrix (Tdap) 2021-12-20 Completed Comm on Spirit - 10:12:00 [facility] Boostrix (Tdap) Boostrix (Tdap) 2021-12-20 Completed Comm on Spirit - 10:12:00 [facility] Boostrix (Tdap) Boostrix (Tdap) 2021-12-20 Completed Comm on Spirit - 10:12:00 [facility] Boostrix (Tdap) Boostrix (Tdap) 2021-12-20 Completed Comm on Spirit - 10:12:00 [facility] Moderna SARS-CoV-2 2020-07-15 Completed Univer sity of [facility] 00:00[facility]00 [facility] COVID-19 2020-07-15 Completed Unive rsity of MODERNA VACCINE 00:00:00 [place] Med ical Branch SARS-COV-2 COVID-19 2020-07-15 Completed Unive rsity of MODERNA 12+ YRS 00:00:00 [facility] ical VACCINE Branch SARS-COV-2 COVID-19 2020-07-15 Completed Unive rsity of MODERNA 12+ YRS 00:00:00 [facility] ical VACCINE Branch SARS-COV-2 COVID-19 2020-07-15 Completed Unive rsity of MODERNA 12+ YRS 00:00:00 [facility] ical VACCINE Branch SARS-COV-2 COVID-19 2020-07-15 Completed Unive rsity of MODERNA 12+ YRS 00:00:00 [place] Med ical VACCINE Branch SARS-COV-2 COVID-19 2020-07-15 Completed Unive rsity of MODERNA 12+ YRS 00:00:00 [place] Med ical VACCINE Branch SARS-COV-2 COVID-19 2020-07-15 Completed Unive rsity of MODERNA 12+ YRS 00:00:00 [place] Med ical VACCINE Branch SARS-COV-2 COVID-19 2020-07-15 Completed Unive rsity of MODERNA 12+ YRS 00:00:00 [place] Med ical VACCINE Branch SARS-COV-2 COVID-19 2020-07-15 Completed Unive rsity of MODERNA 12+ YRS 00:00:00 [place] Med ical VACCINE Branch SARS-COV-2 COVID-19 2020-07-15 Completed Unive rsity of MODERNA 12+ YRS 00:00:00 [place] Med ical VACCINE Branch SARS-COV-2 COVID-19 2020-07-15 Completed Unive rsity of MODERNA 12+ YRS 00:00:00 [place] Med ical VACCINE Branch SARS-COV-2 COVID-19 2020-07-15 Completed Unive rsity of MODERNA 12+ YRS 00:00:00 [place] Med ical VACCINE Branch SARS-COV-2 COVID-19 2020-07-15 Completed Unive rsity of MODERNA 12+ YRS 00:00:00 [place] Med ical VACCINE Branch SARS-COV-2 COVID-19 2020-07-15 Completed Unive rsity of MODERNA 12+ YRS 00:00:00 [place] Med ical VACCINE Branch Moderna SARS-CoV-2 2020-07-15 Completed Univer sity of Vaccination 00:00:00 Peter Merritt [facility] Moderna SARS-CoV-2 2020-06-14 Completed Univer sity of Vaccination 00:00:00 Peter Merritt [facility] SARS-COV-2 COVID-19 2020-06-14 Completed Unive rsity of MODERNA VACCINE 00:00:00 [place] Med ical Branch SARS-COV-2 COVID-19 2020-06-14 Completed Unive rsity of MODERNA 12+ YRS 00:00:00 [place] Med ical VACCINE Branch SARS-COV-2 COVID-19 2020-06-14 Completed Unive rsity of MODERNA 12+ YRS 00:00:00 [place] Med ical VACCINE Branch SARS-COV-2 COVID-19 2020-06-14 Completed Unive rsity of MODERNA 12+ YRS 00:00:00 [place] Med ical VACCINE Branch SARS-COV-2 COVID-19 2020-06-14 Completed Unive rsity of MODERNA 12+ YRS 00:00:00 [place] Med ical VACCINE Branch SARS-COV-2 COVID-19 2020-06-14 Completed Unive rsity of MODERNA 12+ YRS 00:00:00 [place] Med ical VACCINE Branch SARS-COV-2 COVID-19 2020-06-14 Completed Unive rsity of MODERNA 12+ YRS 00:00:00 [place] Med ical VACCINE Branch SARS-COV-2 COVID-19 2020-06-14 Completed Unive rsity of MODERNA 12+ YRS 00:00:00 [place] Med ical VACCINE Branch SARS-COV-2 COVID-19 2020-06-14 Completed Unive rsity of MODERNA 12+ YRS 00:00:00 [place] Med ical VACCINE Branch SARS-COV-2 COVID-19 2020-06-14 Completed Unive rsity of MODERNA 12+ YRS 00:00:00 [place] Med ical VACCINE Branch SARS-COV-2 COVID-19 2020-06-14 Completed Unive rsity of MODERNA 12+ YRS 00:00:00 [place] Med ical VACCINE Branch SARS-COV-2 COVID-19 2020-06-14 Completed Unive rsity of MODERNA 12+ YRS 00:00:00 [place] Med ical VACCINE Branch SARS-COV-2 COVID-19 2020-06-14 Completed Unive rsity of MODERNA 12+ YRS 00:00:00 [place] Med ical VACCINE Branch SARS-COV-2 COVID-19 2020-06-14 Completed Unive rsity of MODERNA 12+ YRS 00:00:00 [place] Med ical VACCINE Branch Moderna SARS-CoV-2 2020-06-14 Completed Univer sity of Vaccination 00:00:00 Peter Merritt [facility] Vital Signs Vital Name Observation Time Observation Value Comments Source Systolic blood 2022-08-25 14:57:00 115 mm[Hg] Univer sity of pressure [place] [facility] Diastolic blood 2022-08-25 14:57:00 71 mm[Hg] Unive rsity of pressure [place] [facility] Heart rate 2022-08-25 14:57:00 59 /min Universi ty of [place] [facility] Body temperature 2022-08-25 14:57:00 36.67 Angelina Univ ersity of [facility] Body height 2022-08-25 14:57:00 165.1 cm Universi ty of [place] [facility] Body weight 2022-08-25 14:57:00 108.41 kg Universi ty of [place] [facility] BMI 2022-08-25 14:57:00 39.77 kg/m2 Universi ty of [facility] Oxygen saturation in 2022-08-25 14:57:00 97 /min University of Arterial blood by [facility] [place] [facility] Pulse oximetry Branch Systolic blood 2022-07-05 18:21:00 163 mm[Hg] Univer sity of pressure [place] [facility] Diastolic blood 2022-07-05 18:21:00 93 mm[Hg] Unive rsity of pressure [place] [facility] Heart rate 2022-07-05 18:21:00 56 /min Universi ty of [place] [facility] Respiratory rate 2022-07-05 18:18:00 20 /min Univ ersity of [facility] Body height 2022-07-05 18:18:00 165.1 cm Universi ty of [place] [facility] Body weight 2022-07-05 18:18:00 109.317 kg Universi ty [facility] [place] [facility] BMI 2022-07-05 18:18:00 40.10 kg/m2 Universi ty of [place] [facility] Oxygen saturation in 2022-07-05 18:18:00 95 /min University of Arterial blood by [facility] [place] [facility] Pulse oximetry Branch height 2022-01-24 16:10:00 64.5 [in_i] Common S [facility] weight 2022-01-24 16:10:00 243 [lb_av] Common S [facility] temperature 2022-01-24 16:10:00 97.6 [degF] Common S [facility] bmi 2022-01-24 16:10:00 41.06 kg/m2 [facility] oximetry 2022-01-24 16:10:00 99 % [facility] respiratory rate 2022-01-24 16:10:00 18 /min Comm on [facility] blood pressure 2022-01-24 16:10:00 135 mm[Hg] [facility] - systolic [facility] blood pressure 2022-01-24 16:10:00 70 mm[Hg] [facility] diastolic [facility] height 2021-12-20 08:30:00 63.5 [in_i] [facility] weight 2021-12-20 08:30:00 238.3 [lb_av] [facility] temperature 2021-12-20 08:30:00 97.3 [degF] [facility] bmi 2021-12-20 08:30:00 41.55 kg/m2 [facility] oximetry 2021-12-20 08:30:00 98 % [facility] respiratory rate 2021-12-20 08:30:00 17 /min Comm on [facility] blood pressure 2021-12-20 08:30:00 132 mm[Hg] [facility] systolic [facility] blood pressure 2021-12-20 08:30:00 72 mm[Hg] [facility] diastolic [facility] Procedures Procedure Date / Time Performed Performing Clinician [facility] e REFERRAL- 2022-07-12 05:01:00 Doctor Unassigned, No Univer sity of [place] REQUEST/RESPONSE Name Medical Branch HB ECG ROUTINE & 2022-07-05 18:28:49 Waylon Gonzalez [facility] RHYTHM STRIP Medical Branch REFERRAL- 2022-07-04 05:01:00 Doctor Unassigned, No Univer sity [facility] REQUEST/RESPONSE Name Medical Branch Plan of Care Planned Activity Planned Date Details Comments Source Future Scheduled 2022-03-22 COVID-19 Vaccination Uni versity of [place] Test 09:09:54 (3 - Moderna risk MD Luo n Cancer series) [code = Center COVID-19 Vaccination (3 - Moderna risk series)] Future Scheduled 2022-03-22 COVID-19 Vaccination Uni versity of [place] Test 09:09:54 (3 - Moderna risk MD Puja gibbs Cancer series) [code = Center COVID-19 Vaccination (3 - Moderna risk series)] Encounters Start End Encounter Admission Attending Care Care Encounter Source Date/Time Date/Time Type Type Clinicians Facility Department ID 2021-12-20 Outpatient Coulter, [facility] [id number] Common 08:06:01 [facility] [id number] [facility] 2020-12-03 Outpatient SYSTEM, MAKAYLA BENAVIDES [id number] 08:12:25 PROVIDER Joce gibbs 2022-10-12 2022-10-12 Outpatient R COLBY SANDERSON [facility] [id number] Univers 10:10:00 10:10:00 [facility]22-[facility] 2022-09-26 Outpatient R PIETRO [facility] [id number] Univers 09:00:00 09:00:00 [facility] 2022-09-06 2022-09-06 Outpatient R PIETRO [facility] [id number] Univers 00:00:00 00:00:00 RUIQING [facility] 2022-08-25 2022-08-25 Outpatient R PIETRO [facility] [id number] Univers 10:00:00 10:59:04 RUIQING ity [facility] 2022-08-25 2022-08-25 [facility] [id number] Univers 10:00:00 10:59:04 Visit Ruiqing L SPECIALTY [id number] ity of CARE [id number] [facility] [place] [facility] AT [phone] Pr lashay GUALLPA [address] [place] [address] 2022-08-04 2022-08-04 Outpatient R ABELARDO [facility] [id number] Univers 07:55:42 07:55:42 WAYLON bolanos o f [facility] 2022-07-21 2022-07-21 Telephone [facility] [id number] Univers 00:00:00 00:00:00 Qiaramónjun [place] [id number] ity of [place] [id number] [place] PROF[place] [id number] Pr dic[address] 2022-07-13 2022-07-13 [facility] [id number] Univers 08:13:39 23:59:00 WAYLON ity o f [facility] 2022-07-13 2022-07-13 Telephone [facility] [id number] Univers 00:00:00 00:00:00 Waylon [place] [id number] ity [facility] [id number] [id number] [address] 2022-07-13 2022-07-13 Patient Doctor [facility] [id number] Univers 00:00:00 00:00:00 Secure Msg Unassigned, [place] [id number] ity of [place] [id number] [place] [phone] [address] 2022-07-12 2022-07-12 Orders Doctor FABIOLA [id number] Univers 00:00:00 00:00:00 Only Unassigned, LEELEE [id number] ity of [place] [facility] [id number] Wander as [phone] [address] 2022-07-07 2022-07-07 Patient [facility] [id number] Univers 00:00:00 00:00:00 Secure Msg Sivaaustin [place] [id number] ity of [facility] [id number] [id number] [address] 2022-07-06 2022-07-06 Telephone [facility] [id number] Univers 00:00:00 00:00:00 [facility] 350.1.13.10 [facility] 4.2.7.2.686 Wander as PAULINO?BLEA [phone] Pr dical KNEY [address] [facility] 2022-07-05 2022-07-05 Outpatient R ABELARDO [facility] [id number] Univers 13:00:00 13:46:52 SIVAAUSTIN ity o f [facility] 2022-07-05 2022-07-05 Office [facility] 1.2.840.114 [id number] Univers 13:00:00 13:46:52 Visit Waylon [place] 350.1.13.10 ity of [facility] 4.2.[place].2.[place] [phone] Pr dical NAL [address] [facility] 2022-07-04 2022-07-04 Orders Doctor FABIOLA 1.2.840.114 [id number] Univers 00:00:00 00:00:00 Only Unassigned, LEELEE 350.1.13.10 ity of [place] [facility] 4.2.7.2.686 Wander as [phone] [address] 2022-03-22 2022-03-22 Telephone Arin, 1.2.840.1 [id number] Univers 00:00:00 00:00:00 Mer O 78716.1.1 ity of 3.412.2.7 [place] .3.643713 MD Morton [facility] 2022-03-22 2022-03-22 Telephone [place], 1.2.840.1 [id number] Univers 00:00:00 00:00:00 Mer O 56848.1.1 ity of 3.412.2.7 [place] .3.450029 MD [facility] 2022-03-22 2022-03-22 Telephone [place], 1.2.840.1 [id number] Univers 00:00:00 00:00:00 Mer O 46295.1.1 ity of 3.412.2.7 [place] .3.593870 MD [facility] 2022-03-22 2022-03-22 Telephone Arin, 1.2.840.1 [id number] Univers 00:00:00 00:00:00 Mer O 05449.1.1 ity of 3.412.2.7 [place] .3.192421 MD Donovan8 [facility] 2022-02-27 2022-02-27 Telephone Arin, 1.2.840.1 [id number] Univers 00:00:00 00:00:00 Mer O 87367.1.1 ity of 3.412.2.7 [place] .3.206751 MD Donovan8 [facility] 2022-02-27 2022-02-27 Telephone Arin, 1.2.840.1 [id number] Univers 00:00:00 00:00:00 Mer O 49871.1.1 ity of 3.412.2.7 [place] .3.696431 MD Donovan8 [facility] 2022-02-23 2022-02-23 (TEL) STLMLC STLMLC [id number] Co mmon 00:00:00 00:00:00 [facility] 2022-02-16 2022-02-16 (TEL) STLMLC STLMLC [id number] Co mmon 00:00:00 00:00:00 [facility] 2022-02-15 2022-02-15 (TEL) STLMLC STLMLC [id number] Co mmon 00:00:00 00:00:00 [facility] 2022-02-09 2022-02-09 (TEL) STLMLC STLMLC [id number] Co mmon 00:00:00 00:00:00 [facility] 2022-01-24 2022-01-24 OFFICE STLMLC STLMLC [id number] Co mmon 00:00:00 00:00:00 VISIT EST Spir it PT LEVEL [address] [place] [address] 2022-01-02 2022-01-02 (TEL) STLMLC STLMLC [id number] Co mmon 00:00:00 00:00:00 [facility] 2021-12-20 2021-12-20 PREV VISIT STLMLC STLC [id number] Common 00:00:00 00:00:00 NEW AGE Spirit 40-64 - [facility] 2021-10-19 2021-10-19 Outpatient R SANTOS, [facility] [id number] Univers 14:30:00 14:30:00 DONNA bolanos [facility] 2021-10-19 2021-10-19 Outpatient R SANTOS, [facility] [id number] Univers 14:30:00 14:30:00 DONNA bolanos [facility] 2021-09-29 2021-09-29 [facility] 1.2.840.114 [id number] Univers 00:00:00 00:00:00 Donna A HEALTH 350.1.13.10 i ty of [place] 4.2.7.2.686 Wander as PAULINO?BLEA [phone] [address] OFFICE [facility] 2021-09-26 2021-09-26 Refpiper [facility] 1.2.840.114 [id number] Univers 00:00:00 00:00:00 Donna A HEALTH 350.1.13.10 i ty of [place] 4.2.7.2.686 Wander as PAULINO?BLEA [phone] [address] 2021-09-26 2021-09-26 Telephone [facility] 1.2.284.991 [id number] Univers 00:00:00 00:00:00 Donna A HEALTH 350.1.13.10 i ty of [place] 4.2.7.2.686 Wander as PAULINO?BLEA [phone] [address] 2021-09-14 2021-09-14 Leoanrd P[facility]chardM[facility] 1.2.840.114 [id number] Univers 00:00:00 00:00:00 Niurka HEALTH 350.1.13.10 it y of [place] 4.2.7.2.686 Wander as PAULINO?BLEA [phone] [address] OFFICE [facility] 2021-08-182021-08-18 Telephone [facility] 1.2.962.835 [id number] Univers 00:00:00 00:00:00 Donna A HEALTH 350.1.13.10 i ty of [place] 4.2.7.2.686 Wander as PAULINO?BLEA [phone] [facility] [address] [facility] 2021-08-15 2021-08-15 Refill [facility] 1.2.840.114 [id number] Univers 00:00:00 00:00:00 Donna Moisés HEALTH 350.1.13.10 i ty of [place] 4.2.7.2.686 Wander as PAULINO?BLEA [phone] [address] OFFICE [facility] 2021-08-05 2021-08-05 Letter FABIOLA Weaver 1.2.840.114 [id number] Univers 00:00:00 00:00:00 (Out) Tamiko Owusu LEELEE 350.1.13.10 it y of [facility] 4.2.7.2.686 Wander as [phone] [address] 2021-08-04 2021-08-04 Outpatient R ALEXIS [facility] [id number] Univers 10:00:00 10:29:06 RENITA fitch [facility] 2021-08-04 2021-08-04 Laboratory Only, Ang Db Test [facility] 1.2.8 40.114 [id number] Univers 10:00:00 10:20:00 Only Renita Tucker HEALTH 350.1.13.10 ity of [place] 4.2.7.2.686 Wander as PAULINO?BLEA [phone] [facility] [address] [facility] OFFICE [facility] 2021-08-03 2021-08-03 Outpatient [facility] [id number] Univers 14:30:00 14:30:00 DONNA ity of [facility] 2021-07-25 2021-07-25 Refill Roz Ford 1.2.840.1 [id number] Univers 00:00:00 00:00:00 93490.1.1 ity of 3.412.2.7 [place] .3.736999 MD .8 [facility] 2021-07-21 2021-07-21 Refill [facility] 1.2.840.114 [id number] Univers 00:00:00 00:00:00 Donna MOELLER 350.1.13.10 ity of [place] [phone] Pr dical NAL 044 [facility] 2021-06-30 2021-06-30 [facility] 1.2.840.114 [id number] Univers 00:00:00 00:00:00 Tracy MOELLER 350.1.13.10 ity of [place] [phone] Pr dical NAL 044 [facility] 2021-02-18 2021-02-18 Outpatient ROZ FORD MDA MDA [id number] 08:07:00 09:47:48 Joce o n 2021-02-18 2021-02-18 Outpatient MAX GAY MDA MDA [id number] 07:53:45 07:58:23 Joce o n 2021-02-01 2021-02-01 Outpatient DAMARID, MDA MDA [id number] 13:28:53 13:53:47 VENKATA Andriy so n 2021-01-31 2021-01-31 Outpatient DAMARID, MDA MDA [id number] 13:21:53 13:47:51 NEKRISH Andriy so n 2021-01-28 2021-01-28 Outpatient CHINOMAD, MDA MDA [id number] 13:25:49 13:35:22 NEKRISH Andriy so n 2021-01-27 2021-01-27 Outpatient CHINOMAD, MDA MDA [id number] 13:27:41 13:45:08 NEKRISH Andriy so n 2021-01-26 2021-01-26 Outpatient DAMARID, MDA MDA [id number] 13:36:01 14:13:07 NEKRISH Andriy so n 2021-01-26 2021-01-26 Outpatient EL CHINOMAD, MDA MDA [id number] MD 13:35:19 13:54:02 NEKRISH Quileser so n 2021-01-25 2021-01-25 Outpatient EL AHMAD, MDA MDA [id number] MD 13:15:23 13:54:52 NEKRISH Quileser so n 2021-01-24 2021-01-24 Outpatient EL CHINOMAD, MDA MDA [id number] MD 09:32:38 10:33:11 NEKRISH Quileser so n 2021-01-24 2021-01-24 Outpatient MAX BURDEN MDA MDA [id number] MD 08:55:50 08:55:50 Joce o n 2021-01-21 2021-01-21 Outpatient EL CHINOMAD, MDA MDA [id number] 13:04:31 13:23:31 NEKRISH Quileser so n 2021-01-20 2021-01-20 Outpatient EL CHINOMAD, MDA MDA [id number] 13:13:02 13:34:54 NEKRISH Quileser so n 2021-01-19 2021-01-19 Outpatient EL CHINOMAD, MDA MDA [id number] 13:46:41 14:14:05 NEKRISH Quileser so n 2021-01-19 2021-01-19 Outpatient EL CHINOMAD, MDA MDA [id number] MD 13:44:32 14:09:40 NEKRISH Quileser so n 2021-01-19 2021-01-19 Outpatient EL DAMARID, MDA MDA [id number] 13:08:54 13:45:11 NEKRISH Quileser so n 2021-01-18 2021-01-18 Outpatient R [facility]GINAL[facility] [id number] Univers 15:00:00 15:00:00 ZINA bolanos [facility] 2021-01-18 2021-01-18 Office [facility] 1.2.318.006 [id number] Univers 14:29:08 14:55:23 Visit Zina MOELLER 350.1.13.10 isauro [place]ink[place] 4.2.7.2.686 Kristina CAMPBELL [phone] Pr dical NAL 419 [facility] 2021-01-11 2021-01-11 [facility] [id number] Univers 13:45:00 13:45:00 ZINA bolanos [facility] 2021-01-11 2021-01-11 Office [facility] 1.2.451.138 [id number] Univers 13:11:01 13:40:23 Visit Zina Moeller 350.1.13.10 i ty of [place] [phone] Pr dical nal 419 [facility] 2021-01-10 2021-01-10 Outpatient IZABELA CONNOLLY MDA MDA [id number] 06:00:00 23:59:00 VENKATA de luna n 2021-01-05 2021-01-05 Orders Doctor FABIOLA 1.2.840.114 [id number] Univers 00:00:00 00:00:00 Only Unassigned, LEELEE 350.1.13.10 [facility] 4.2.7.2.686 Wander as [id number] [address] 2021-01-04 2021-01-04 Office [facility] 1.2.714.997 [id number] Univers 15:22:07 17:26:14 Visit Zina Moeller 350.1.13.10 i [place] [phone] Pr dical [address] 2021-01-04 2021-01-04 [facility] [id number] Univers 16:00:00 16:00:00 ZINA bolanos [facility] 2021-01-03 2021-01-03 Outpatient IZABELA CONNOLLY MDA MDA [id number] 12:42:58 13:40:30 VENKATA de luna n 2020-12-31 2020-12-31 Outpatient IZABELA ESTRADA MDA MDA [id number] 11:32:49 11:44:57 LIVAN gibbs 2020-12-28 2020-12-28 Outpatient Jaya [facility] [id number] Univers 13:00:00 13:00:00 ZINA ity [facility] 2020-12-24 2020-12-27 Outpatient IZABELA MALLORY MDA MDA [id number] 13:13:19 14:32:49 LAYLA Joce o n 2020-12-27 2020-12-27 Outpatient IZABELA CONNOLLY MDA MDA [id number] 07:44:32 08:53:28 VENKATA Ashraf so n 2020-12-24 2020-12-24 Outpatient IZABELA DEIDRA RENARDJOSH MDA MDA [id number] 16:05:52 16:18:59 Joce o sai 2020-12-24 2020-12-24 Outpatient IZABELA MAX GAY MDA MDA [id number] 15:53:39 15:53:39 Joce o sai 2020-12-24 2020-12-24 Office [facility] 1.2.840.114 [id number] Univers 15:24:02 15:39:02 [facility] 350.1.13.10 it y of [place] 4.2.7.2.686 [facility] [phone] Med ical MDA [id number] 2020-12-24 2020-12-24 Outpatient R PAMELA [facility] [id number] Univers 15:24:02 15:24:02 GRACIELA ity [facility] 2020-12-24 2020-12-24 Outpatient IZABELA ROZ FORD MDA MDA [id number] 13:16:12 14:54:49 Joce o sai 2020-12-21 2020-12-21 Orders Doctor FABIOLA 1.2.840.114 [id number] Univers 00:00:00 00:00:00 Only Unassigned, LEELEE 350.1.13.10 ity of [place] [facility] 4.2.7.2.686 Wander as [phone] [facility] [address] 2020-12-09 2020-12-09 Multidisci [facility] 1.2.840.114 [id number] Univers 00:00:00 00:00:00 plinary Graciela [facility] [place] 350.1.13.10 it y of [place] 4.2.7.2.686 [facility] - [phone] [facility] ical MDA [id number] 2020-12-08 2020-12-08 Outpatient IZABELA MALLORY MDA MDA [id number] 04:05:12 04:05:12 LAYLA gibbs 2020-12-02 2020-12-02 Outpatient IZABELA MALLORY MDA MDA [id number] 13:44:12 13:44:12 LAYLA gibbs 2020-12-02 2020-12-02 Outpatient IZABELA MALLORY MDA MDA [id number] 13:43:57 13:43:57 LAYLA gibbs 2020-12-02 2020-12-02 Outpatient IZABELA MALLORY MDA MDA [id number] 13:43:56 13:43:56 LAYLA gibbs 2020-12-02 2020-12-02 Ashtyn Monique [facility] 1.2.617.239 [id number] Univers 00:00:00 00:00:00 Donna [facility] 350.1.13.10 [facility] 4.2.7.2.686 Wander as [facility] [phone] [address] Office [address] 2020-12-01 2020-12-01 Outpatient Jaya MONIQUE [facility] [id number] Univers 16:30:00 16:30:00 DONNA bolanos [facility] 2020-11-23 2020-11-23 Outpatient Jaya PALOMARES [facility] [id number] Univers 15:45:00 15:45:00 ZINA bolanos [facility] 2020-11-09 2020-11-09 Outpatient Jaya PALOMARES [facility] JACINTO [id number] Univers 07:25:00 14:47:00 ZINA bolanos [facility] 2020-11-09 2020-11-09 Outpatient SJ [facility] [id number] Univers 09:00:00 09:00:00 ARASH bolanos [facility] 2020-11-08 2020-11-08 Outpatient Jaya PALOMARES [facility] [id number] Univers 08:00:00 08:00:00 ZINA [facility] 2020-11-02 2020-11-02 Outpatient R MINOREGINALDO [facility] [id number] Univers 14:30:00 14:30:00 [facility] 2020-10-20 2020-10-20 Outpatient R VALERY [facility] [id number] Univers 10:00:00 10:00:00 ATTENDING [facility] 2020-10-12 2020-10-12 Outpatient R MINOREGINALDO [facility] [id number] Univers 00:00:00 00:00:00 ZINA [facility] 2020-10-04 2020-10-04 Outpatient R REJI [facility] [id number] Univers 08:26:25 08:26:25 TRACYMARK iglesias [facility] 2020-09-28 2020-09-28 Outpatient R MINOREGINALDO [facility] [id number] Univers 15:45:00 [facility]:45[facility] 2020-09-08 2020-09-08 Outpatient R REJI [facility] [id number] Univers 10:00:00 10:00:00 TRACY fitch [facility] 2020-08-30 2020-08-30 Outpatient [facility] [id number] Univers 10:00:00 10:00:00 TRACY luis miguel iglesias [facility] 2019-07-01 2019-07-01 Outpatient R [facility] [id number] Univers 10:20:00 10:20:00 [facility] Results This patient has no known results.
--- NOTE | 2022-09-22 13:24 | RAD REPORT ---
EXAM DESCRIPTION: CT - Head Brain Wo Cont - 09/22/2022 1:05 pm CLINICAL HISTORY: Facial numbness COMPARISON: June 2022 TECHNIQUE: Computed axial tomography of the head was obtained. IV contrast was not requested. All CT scans are performed using dose optimization technique as appropriate and may include automated exposure control or mA/KV adjustment according to patient size. FINDINGS: An intracranial bleed is not seen The ventricles are normal in caliber No extra-axial fluid collection is noted. No significant hypodensity within the brain or. Fluid within the sinuses/ mastoids is not seen. IMPRESSION: No acute intracranial abnormality is seen If patient's symptoms persist MRI of the brain would be recommended
[2022-09-22 13:35] LABS: Absolute Lymphocytes (CBC) 1.7 K/uL (0.7-4.9); Hematocrit 35.2 % (36.0-45.0); Lymphocytes % 19.6 % (15.3-44.8); MCV 92.8 fL (80-100); MPV 7.9 fL (7.6-11.3)
[2022-09-22 13:45] LABS: Potassium 3.5 mEq/L (3.5-5.1)
--- NOTE | 2022-09-22 13:45 | RAD REPORT ---
EXAM DESCRIPTION: Pilar Single View09/22/2022 1:27 pm CLINICAL HISTORY: Tachycardia COMPARISON: June 2022 FINDINGS: The lungs appear clear of acute infiltrate. The heart is mildly to moderately enlarged IMPRESSION: No acute abnormalities displayed
--- NOTE | 2022-09-22 13:57 | EDPHYS ---
Physician Documentation [facility] Name: Becca Mileszluzma Age: 61 yrs Sex: Female : 1960 Arrival Date: 09/22/2022 Time: 12:41 Bed 14 Private MD: ED Physician Jamal Jarquin HPI: 09/22 12:54 This 61 yrs old Female presents to ER via Wheelchair with complaints of Seizure. ms3 12:54 61-year-old female with past medical history of hypertension, breast cancer, atrial ms3 fibrillation presents for palpitations, left side of her brain electrical discharges, ringing in her ears, and mouth numbness/tingling that began last night. Patient states she is currently seeing neurology and being tested for seizures. Patient has a MRI scheduled for tomorrow and EEG scheduled for next week. Patient denies nausea, vomiting, pain.. Historical: - Allergies: 12:53 No Known Allergies; ld1 - Home Meds: 12:53 Bystolic 20 mg Oral tab 1 tab once daily [Active]; Eliquis 5 mg oral tablet every 12 ld1 hours [Active]; - PMHx: 12:53 breast cancer L side; Hypertension; Atrial fibrillation; ld1 - Immunization history:: Adult Immunizations up to date. - Social history:: Smoking status: Patient denies any tobacco usage or history of. ROS: 12:54 Constitutional: Negative for fever, and chills. ENT: Negative for injury, pain, and ms3 discharge, Neck: Negative for injury, pain, and swelling. 12:54 Respiratory: Negative for shortness of breath, cough, wheezing, and pleuritic chest pain, Abdomen/GI: Negative for abdominal pain, nausea, vomiting, diarrhea, and constipation, MS/Extremity: Negative for injury and deformity, Skin: Negative for injury, rash, and discoloration. 12:54 Cardiovascular: Positive for palpitations. 12:54 All other systems are negative. Exam: 12:54 Constitutional: This is a well developed, well nourished patient who is awake, alert, ms3 and in no acute distress. Head/Face: Normocephalic, atraumatic. Neck: Trachea midline, no cervical lymphadenopathy. Supple, full range of motion without nuchal rigidity, or vertebral point tenderness. No Meningismus. Chest/axilla: Normal chest wall appearance and motion. Nontender with no deformity. 12:54 Skin: Warm, dry with normal turgor. Normal color with no rashes, no lesions, and no evidence of cellulitis. MS/ Extremity: Pulses equal, no cyanosis. Neurovascular intact. Full, normal range of motion. 12:54 Cardiovascular: Rate: tachycardic. 13:17 ECG was reviewed by the Attending Physician. ms3 Vital Signs: 12:51 BP 137 / 101; Pulse 143; Resp 20; Temp 97.8(TE); Pulse Ox 99% on R/A; Weight 106.59 kg; ld1 Height 5 ft. 5 in. ; Pain 0/10; 13:00 BP 137 / 67; Pulse 64; Resp 16; Pulse Ox 99% on R/A; ko1 13:44 BP 137 / 78; Pulse 63; Resp 16; Pulse Ox 99% ; ko1 12:51 Body Mass Index 39.11 (106.59 kg, 165.1 cm) ld1 12:51 Pain Scale: Adult ld1 Lucio Coma Score: 13:30 Eye Response: spontaneous(4). Motor Response: obeys commands(6). Verbal Response: ko1 oriented(5). Total: 15. MDM: 12:52 Patient medically screened. ms3 12:54 Differential diagnosis: seizure, A fib with RVR. ms3 13:56 Data reviewed: vital signs, nurses notes, lab test result(s), EKG, radiologic studies, ms3 and as a result, I will discharge patient. Independent interpretation of the following test(s) in the Emergency Department nursing assistants teacher: rate is 60 beats/min, Rhythm is normal sinus rhythm, regular, with no ectopy, Interpretation: normal rate, normal rhythm. Care significantly affected by the following chronic conditions: Hypertension, Atrial Fibrillation. Counseling: I had a detailed discussion with the patient and/or guardian regarding: the historical points, exam findings, and any diagnostic results supporting the discharge/admit diagnosis, lab results, radiology results, the need for outpatient follow up, to return to the emergency department if symptoms worsen or persist or if there are any questions or concerns that arise at home. Response to treatment: the patient's symptoms have resolved after treatment, and as a result, I will discharge patient. Special discussion: I discussed with the patient/guardian in detail that at this point there is no indication for admission to the hospital. It is understood, however, that if the symptoms persist or worsen the patient needs to return immediately for re-evaluation. 09/22 12:54 Order name: Basic Metabolic Panel; Complete Time: 13:50 ms3 09/22 12:54 Order name: CBC with Diff; Complete Time: 13:50 ms3 09/22 12:54 Order name: CT Head Brain wo Cont; Complete Time: 13:50 ms3 09/22 12:54 Order name: CXR XRAY; Complete Time: 13:50 ms3 09/22 12:54 Order name: EKG; Complete Time: 12:55 ms3 09/22 12:54 Order name: Accucheck; Complete Time: 13:17 ms3 09/22 12:54 Order name: Cardiac monitoring; Complete Time: 13:01 ms3 09/22 12:54 Order name: EKG - Nurse/Tech; Complete Time: 13:17 ms3 09/22 12:54 Order name: IV Saline Lock; Complete Time: 13:17 ms3 09/22 12:54 Order name: Labs collected and sent; Complete Time: 13:17 ms3 09/22 12:54 Order name: NPO; Complete Time: 12:56 ms3 09/22 12:54 Order name: O2 Per Protocol; Complete Time: 12:56 ms3 09/22 12:54 Order name: O2 Sat Monitoring; Complete Time: 12:56 ms3 EC:17 Rate is 61 beats/min. Rhythm is regular. QRS [place] is Normal. IA interval is normal. QRS ms3 interval is normal. QT interval is normal. Clinical impression: Normal ECG. Interpreted by me. Reviewed by me. Administered Medications: No medications were administered Disposition Summary: 09/22/22 13:56 Discharge Ordered Location: Home ms3 Condition: Stable ms3 Diagnosis - Tachycardia, unspecified ms3 - Paresthesia of skin ms3 Discharge Instructions: - Discharge Summary Sheet ms3 - Paresthesia ms3 Forms: - Medication Reconciliation Form ms3 - Thank You Letter ms3 - Antibiotic Education ms3 - Prescription Opioid Use ms3 - Work release form ko1 Signatures: Dispatcher [employer] EDVT Jamal Jarquin, DO ms3 Vandana Jarquin RN RN ld1 Dejon, Mariluz, RN RN ko1
--- NOTE | 2022-09-22 13:57 | ER ---
Nurse's Notes [facility] Name: Becca De Leon Age: 61 yrs Sex: Female : 1960 Arrival Date: 09/22/2022 Time: 12:41 Bed 14 Private MD: Diagnosis: Tachycardia, unspecified;Paresthesia of skin Presentation: 09/22 12:51 Chief complaint: Patient states: "I've been having these episodes where I get a ld1 shocking pain on the side of my face and the neurologist is testing me for a form of epilepsy. I don't know what it is.". Coronavirus screen: Client denies travel out of the [place] in the last 14 days. Ebola Screen: Patient denies exposure to infectious person. Patient denies travel to an Ebola-affected area in the 21 days before illness onset. Initial Sepsis Screen: Does the patient meet any 2 criteria? No. Patient's initial sepsis screen is negative. Does the patient have a suspected source of infection? No. Patient's initial sepsis screen is negative. Risk Assessment: Do you want to hurt yourself or someone else? Patient reports no desire to harm self or others. Onset of symptoms is unknown. 12:51 Acuity: DINORAH 2 ld1 12:51 Method Of Arrival: Wheelchair ld1 Historical: - Allergies: 12:53 No Known Allergies; ld1 - Home Meds: 12:53 Bystolic 20 mg Oral tab 1 tab once daily [Active]; Eliquis 5 mg oral tablet every 12 ld1 hours [Active]; - PMHx: 12:53 breast cancer L side; Hypertension; Atrial fibrillation; ld1 - Immunization history:: Adult Immunizations up to date. - Social history:: Smoking status: Patient denies any tobacco usage or history of. Screenin:00 [facility] ED Fall Risk Assessment (Adult) History of falling in the last 3 months, ko1 including since admission No falls in past 3 months (0 pts) Confusion or Disorientation No (0 pts) Intoxicated or Sedated No (0 pts) Impaired Gait No (0 pts) Mobility Assist Device Used No (0 pt) Altered Elimination No (0 pt) Score/Fall Risk Level 0 - 2 = Low Risk Oriented to surroundings, Maintained a safe environment, Educated pt \\T\\ family on fall prevention, incl call for assistance when getting out of bed, Assessed \\T\\ reinforced patient's understanding of fall precautions, Provided non-skid footwear, Hourly rounding (assess needs \\T\\ fall precautionary measures) done, Used ambulatory aids as needed (educated on \\T\\ assisted with), Used gait belt as appropriate. Abuse screen: Denies threats or abuse. Denies injuries from another. Nutritional screening: No deficits noted. Tuberculosis screening: No symptoms or risk factors identified. Assessment: 13:00 General: Appears in no apparent distress. comfortable, Behavior is calm, cooperative, ko1 appropriate for age. Pain: Denies pain. Neuro: Reports feeling like I'm going to pass out. Cardiovascular: No deficits noted. Reports history of afib. Respiratory: No deficits noted. GI: No deficits noted. : No deficits noted. EENT: No deficits noted. Derm: No deficits noted. Musculoskeletal: No deficits noted. Vital Signs: 12:51 BP 137 / 101; Pulse 143; Resp 20; Temp 97.8(TE); Pulse Ox 99% on R/A; Weight 106.59 kg; ld1 Height 5 ft. 5 in. ; Pain 0/10; 13:00 BP 137 / 67; Pulse 64; Resp 16; Pulse Ox 99% on R/A; ko1 13:44 BP 137 / 78; Pulse 63; Resp 16; Pulse Ox 99% ; ko1 12:51 Body Mass Index 39.11 (106.59 kg, 165.1 cm) ld1 12:51 Pain Scale: Adult ld1 [place] Coma Score: 13:30 Eye Response: spontaneous(4). Motor Response: obeys commands(6). Verbal Response: ko1 oriented(5). Total: 15. ED Course: 12:43 Patient arrived in ED. ts1 12:44 Jamal Jarquin DO is Attending Physician. ms3 12:53 Triage completed. ld1 12:53 Arm band placed on right wrist. ld1 12:56 Mariluz Ashford, BRIDGER is Primary Nurse. ko1 13:00 Patient has correct armband on for positive identification. Placed in gown. Bed in low ko1 position. Call light in reach. Side rails up X2. Client placed on continuous cardiac and pulse oximetry monitoring. NIBP monitoring applied. vehicle monitor technician on. Door closed. Noise minimized. Lights dimmed. Warm blanket given. 13:00 Inserted saline lock: 22 gauge in right forearm, using aseptic technique. Blood ko1 collected. 13:05 CT Head Brain wo Cont In Process Unspecified. EDMS 13:17 Basic Metabolic Panel Sent. ko1 13:17 CBC with Diff Sent. ko1 13:29 CXR XRAY In Process Unspecified. EDMS 13:44 Seizure precautions initiated. ko1 13:57 No provider procedures requiring assistance completed. IV discontinued, intact, ko1 bleeding controlled, No redness/swelling at site. Pressure dressing applied. Administered Medications: No medications were administered Medication: 13:00 VIS not applicable for this client. ko1 Outcome: 13:56 Discharge ordered by MD. ms3 13:57 Discharged to home ambulatory, with family. ko1 13:57 Condition: improved 13:57 Discharge instructions given to patient, family, Instructed on discharge instructions, follow up and referral plans. Demonstrated understanding of instructions, follow-up care. 14:08 Patient left the ED. ko1 Signatures: Dispatcher [employer] EDCO Jamal Jarquin DO DO ms3 Vandana Jarquin RN RN ld1 Mariluz Ashford, RN RN ko1 Lucia Steven, PAS PAS ts1
[2022-09-22 16:46] VITALS: BP 137/78; TEMP 97.8; O2SAT 99
--- NOTE | 2022-09-25 12:11 | EKG ---
Test Date: 2022-09-22 Test Time: 13:09:14 Clinical Administrative Coordinator: STEVE MEASUREMENT RESULTS: Intervals: Rate: 61 MA: 182 QRSD: 82 QT: 420 QTc: 422 [place]: P: 24 MA: 182 QRS: -4 T: 44 INTERPRETIVE STATEMENTS: Normal sinus rhythm Normal ECG Compared to ECG 06/30/2022 09:25:57 Left ventricular hypertrophy no longer present Electronically Signed On 09-25-22 12:01:37 CDT by Doug Garcia
== END 2022-09-22 14:08 | disposition home or self-care (01) ==
LOC: ER 12:41
DX: R00.0 Tachycardia, unspecified (principal); R20.2 Paresthesia of skin; I10 Essential (primary) hypertension; I48.91 Unspecified atrial fibrillation; Z85.3 Personal history of malignant neoplasm of breast
CPT/HCPCS: 36415; 70450; 71045; 80048; 85025; 93005; 99284

== ENCOUNTER 2023-07-30 06:03 | Emergency (ER) | payer BC ==
--- OUTSIDE RECORDS SUMMARY | 2023-07-30 06:06 | XMS REPORT | Clinical Summary ---
Author Name Unknown Organization [facility] Address [address] [place] [address] Care Team Providers Care Programmer Analyst Health It Name Role Phone Annia Cerda MD Unavailable [phone] Betty Larkin MD Unavailable [phone] Chester Stanley MD Unavailable [phone] Gladys Martínez Unavailable [phone] Joanne Malone MD Unavailable [phone] Dhiraj Wayne MD Unavailable Roz Park MD Primary Care Provider [phone] Nadege Nelson MD Unavailable [phone] Allergies No known active allergies Medications Medication Sig Dispensed Refills Start Date End Date Status nebivoloL (Bystolic) 20 mg tablet Take 20 mg by mouth daily. 0 09/08/2020 Active ciprofloxacin HCl (CIPRO) 500 mg tablet Take 2 tablets by mouth twice daily. 0 02/14/2021 Active cholecalciferol, vitamin D3, (VITAMIN D3) 5,000 units tab tablet Take 5,000 Units by mouth daily. 0 Active cyanocobalamin-cobama mide 5,000-[address] 1 tablet under the tongue daily. 0 Active multivitamin tab tablet Take 1 tablet by mouth daily. 0 Active letrozole (FEMARA) 2.5 mg tabletIndications:Inf iltrating duct carcinoma, NOS of central portion of breast <Female; Right> TAKE 1 TABLET BY MOUTH EVERY DAY 90 tablet 1 07/25/2021 Active Active Problems Patient Care Coordination No te Formatting of this note migh t be different from the original. 12/31/2020 [facility] COVID test results: not detected Problem Noted Date Diagnosed Date Vitamin D deficiency 02/18/2021 Postmenopausal osteopenia 02/18/2021 Estrogen receptor positive status (ER+) 12/25/19 21 Morbid obesity 11/16/2020 Infiltrating duct carcinoma of central portion of right female breast 05/20/2013 Cancer Staging:Pathologic stage from 12/24/2020:Stage IA(pT2, pN0(sn), cM0, G2, ER+, AR+, HER2-, Oncotype DX score: 3) - Signed by Roz Park MD on 12/26/2020 Personal history of malignant neoplasm of breast Overview: Idc and dcis Immunizations Name Administration Dates Next Due Moderna SARS-CoV-2 Vaccination 07/15/2020,2020 Surgical History Surgery Date Site/Laterality Comments COLONOSCOPY BREAST LUMPECTOMY 2012 and 2020 Left 2012 removed and Right 2020 removed STOMACH SURGERY 04/16/2003 - 04/15/2004 gastric bypass LUMPECTOMY BREAST 04/16/2012 - 04/15/2013 Left ANKLE SURGERY 04/16/2014 - 04/15/2015 Left twice ANKLE SURGERY 04/16/2018 - 04/15/2019 Left HERNIA REPAIR 04/16/2017 - 04/15/2018 Medical History Medical History Date Comments Estrogen receptor positive status (ER+) Hypertension Malignant tumor of breast Left 01/2013 Right 2020 Idc and dcis Family History Medical History Relation Name Comments -Other cancer Mother Aakash Cyr Mandibular Ovarian cancer Sister Sonia Keller Stage 1 201 4 Relation Name Status Comments Mother Aakash Cyr Sister Sonia Keller Social History Tobacco Use Types Packs/Day Years Used Date Smoking Tobacco: Former Cigarettes 0 0 Smokeless Tobacco: Former Quit: 04/16/2017 Alcohol Use Standard Drinks/Week Comments Yes 4 (1 standard drink = 0.6 oz pur e alcohol) Sex and Gender Information Value Date Recorded Sex Assigned at Female 12/22/2020 2:34 PM CDT Gender Identity Female 12/22/2020 2:34 PM CDT Sexual Orientation Straight 12/22/2020 2: 34 PM CDT Job Start Date Occupation Industry Not on file Not on file Not on file Obstetrics History Comments Menarche - 12 years Years, L MP - 45 years. 2, Para 2, Abortions 0. Her first at the age 22 years, She took control pills for approximately 3 months. Hormone Replacement Therapy for 0 years. She breast-fed for a total of 4 months Plan of Treatment Health Maintenance Due Date Last Done Comments COVID-19 Vaccine (3 - Moderna risk series) 08/12/2020 07/15/2020, 06/14/2020 Influenza Vaccine 12/15/2022 Care Teams Programmer Analyst Health It Relationship Specialty Start Date End Date Roz Park MD [address] [place] [id number] PCP - General Medical Oncology 12/09/20 Annia Cerda MD [address] [place] [address] Physician 06/23/15 Betty Larkin MD [address] [place] [id number] Physician 06/23/15 Chester Stanley MD [address] [place] [address] Physician 06/23/15 [place] [address] [place] , [address] [address] Physician Telephone Collector 06/23/15 Joanne Malone MD [address] [place] [id number] Physician 06/23/15 Dhiraj Wayne MD [address] [place] [id number] Physician 06/23/15 Nadege Nelson MD [address] [place] [id number] Physician Radiation Oncology 01/25/21
[2023-07-30] MEDS ORDERED: dilTIAZem HCL 25 MG/5 ML VIAL IV ONE (06:23)
[2023-07-30 06:31] LABS: Absolute Basophils 0.1 K/uL (0-0.5); Absolute Eosinophils 0.1 K/uL (0-0.5); Absolute Lymphocytes (CBC) 1.4 K/uL (0.7-4.9); Absolute Monocytes 0.7 K/uL (0.1-1.3); Absolute Neutrophil 7.4 K/uL (1.8-8.0); Basophils % 0.5 % (0-1.3); Eosinophils % 0.8 % (0-4.4); Hematocrit 37.5 % (36.0-45.0); Hemoglobin 12.7 g/dL (12.0-15.0); Lymphocytes % 14.5 % (15.3-44.8); MCH 30.9 pg (27.0-35.0); MCHC 33.9 g/dL (32.0-36.0); MCV 91.1 fL (80-100); MPV 7.6 fL (7.6-11.3); Monocytes % 7.1 % (3.3-12.3); Neutrophils % 77.1 % (41.7-73.7); Nucleated Red Blood Cells % 0.1 % (0-0); Platelets 346 thou/uL (152-406); RBC Red Blood Cell Count 4.11 M/uL (3.86-4.86); Red Cell Distribution Width 13.6 % (12.1-15.2)
[2023-07-30 06:43] LABS: PT Prothrombin Time 12.9 SECONDS (9.5-12.5); Protime INR 1.18
[2023-07-30 06:50] LABS: ALT/SGPT 14 U/L (13-56); AST/SGOT 16 U/L (15-37); Albumin 3.1 g/dL (3.4-5.0); Albumin/Globulin Ratio 0.8 (1.1-1.8); Alkaline Phosphatase 94 U/L (45-117); Anion Gap 11.6 mEq/L (5.0-15.0); BUN Blood Urea Nitrogen 7 mg/dL (7-18); Bicarbonate 22 mEq/L (21-32); Bilirubin Total 0.4 mg/dL (0.2-1.0); Globulin 3.9 g/dL (2.3-3.5); Glomerular Filtration Rate 81 ml/min (=/>90); Glucose Level 154 mg/dL (74-106); NT PRO-BNP 202 pg/mL (<125); Potassium 3.6 mEq/L (3.5-5.1); Sodium Level 138 mEq/L (136-145); Troponin High Sensitivity 16.2 pg/mL (<58.9)
[2023-07-30 06:51] LABS: Bilirubin Direct < 0.1 mg/dL (0-0.2); Bilirubin Indirect, Calculated ND mg/dL (0.2-0.8)
--- NOTE | 2023-07-30 07:00 | RAD REPORT ---
EXAM DESCRIPTION: Pilar Single View07/30/2023 6:44 am CLINICAL HISTORY: Palpitations and shortness of breath COMPARISON: 2022 FINDINGS: Upper lobe vessels are prominent which may indicate pulmonary vascular congestion. The lungs appear clear of acute infiltrate. The heart is mildly enlarged
--- NOTE | 2023-07-30 08:42 | EDPHYS ---
Physician Documentation [facility] Name: Becca Mileszluzma Age: 62 yrs Sex: Female : 1960 Arrival Date: 07/30/2023 Time: 06:03 Bed 4 Private MD: ED Physician Lex Hewitt HPI: 07/29 06:26 This 62 yrs old Female presents to ER via Wheelchair with complaints of Palpitations. sp3 06:26 62-year-old female with a history of hypertension, paroxysmal atrial fibrillation and sp3 prior breast cancer now presents to the ED with chief complaint palpitations and chest pain that started approximately 2 AM. Subsequently got worse and she presents to the ED. Patient denies any fever, URI symptoms, cough, shortness of breath, abdominal pain, vomiting, diarrhea, change in diet, prolonged immobilization, recent travel, current chemotherapy or immunotherapy or radiation, or any other signs or symptoms on ROS at this time. Patient is on Eliquis and has been compliant with her dosing.. Historical: - Allergies: 06:15 No Known Allergies; cm10 - PMHx: 06:15 Atrial fibrillation; breast cancer L side; Hypertension; cm10 - Immunization history:: Adult Immunizations up to date. - Infectious Disease History:: Denies. - Social history:: Smoking status: Patient denies any tobacco usage or history of. ROS: 06:27 Constitutional: Negative for fever, chills, and weight loss, Eyes: Negative for injury, sp3 pain, redness, and discharge, ENT: Negative for injury, pain, and discharge, Neck: Negative for injury, pain, and swelling, Respiratory: Negative for shortness of breath, cough, wheezing, and pleuritic chest pain, Abdomen/GI: Negative for abdominal pain, nausea, vomiting, diarrhea, and constipation, Back: Negative for injury and pain, MS/Extremity: Negative for injury and deformity, Skin: Negative for injury, rash, and discoloration, Neuro: Negative for headache, weakness, numbness, tingling, and seizure, Psych: Negative for depression, anxiety, suicide ideation, homicidal ideation, and hallucinations, Allergy/Immunology: Negative for hives, rash, and allergies, Endocrine: Negative for neck swelling, polydipsia, polyuria, polyphagia, and marked weight changes, Hematologic/Lymphatic: Negative for swollen nodes, abnormal bleeding, and unusual bruising, 06:27 All other systems are negative, Exam: 06:27 Constitutional: This is a well developed, well nourished patient who is awake, alert, sp3 and in no acute distress. Head/Face: Normocephalic, atraumatic. Eyes: Pupils equal round and reactive to light, extra-ocular motions intact. Lids and lashes normal. Conjunctiva and sclera are non-icteric and not injected. Cornea within normal limits. Periorbital areas with no swelling, redness, or edema. Neck: Trachea midline, no thyromegaly or masses palpated, and no cervical lymphadenopathy. Supple, full range of motion without nuchal rigidity, or vertebral point tenderness. No Meningismus. Chest/axilla: Normal chest wall appearance and motion. Nontender with no deformity. No lesions are appreciated. Respiratory: Lungs have equal breath sounds bilaterally, clear to auscultation and percussion. No rales, rhonchi or wheezes noted. No increased work of breathing, no retractions or nasal flaring. Abdomen/GI: Soft, non-tender, with normal bowel sounds. No distension or tympany. No guarding or rebound. No evidence of tenderness throughout. Back: No spinal tenderness. No costovertebral tenderness. Full range of motion. Skin: Warm, dry with normal turgor. Normal color with no rashes, no lesions, and no evidence of cellulitis. MS/ Extremity: Pulses equal, no cyanosis. Neurovascular intact. Full, normal range of motion. Neuro: Awake and alert, GCS 15, oriented to person, place, time, and situation. Cranial nerves II-XII grossly intact. Motor strength 5/5 in all extremities. Sensory grossly intact. Cerebellar exam normal. Normal gait. Psych: Awake, alert, with orientation to person, place and time. Behavior, mood, and affect are within normal limits. 06:27 Cardiovascular: Patient's heart rate initially in the 140 range and atrial fibrillation with RVR on the monitor. Patient self converted spontaneously and EKG reflects this change., 06:27 ECG was reviewed by the Attending Physician. EKG demonstrates normal sinus rhythm at 73 bpm with normal intervals, normal QRS, normal axis, nonspecific diffuse ST's ST changes without evidence of acute ischemia. Vital Signs: 06:08 BP 143 / 111; Pulse 132; Resp 20; Temp 98.5(O); Pulse Ox 97% on R/A; Weight 106.59 kg; cm10 Height 5 ft. 5 in. ; Pain 0/10; 06:15 BP 151 / 90; Pulse 73; Resp 18; Pulse Ox 97% ; cm10 07:13 BP 139 / 79; Pulse 60; Resp 18; Pulse Ox 96% on R/A; ld1 08:54 BP 142 / 84; Pulse 75; Resp 18; Pulse Ox 98% on R/A; rs5 06:08 Body Mass Index 39.11 (106.59 kg, 165.1 cm) cm10 06:08 Pain Scale: Adult cm10 MDM: 06:12 Patient medically screened. sp3 06:28 Data reviewed: vital signs, nurses notes, old medical records, lab test result(s), EKG, sp3 radiologic studies. ED course: 62-year-old female with PMH above now with a resolved atrial fibrillation with RVR. Patient feels much better after she converted and chest pain is resolving rapidly. Differential diagnosis includes spontaneous arrhythmia versus electrolyte abnormality versus ACS versus others. I am not highly suspicious for sepsis, shock, pulmonary etiology, GI etiology, vascular etiology, or any other critical process at this time. Workup will include EKG, chest x-ray and laboratory values and as needed AV alberto blocking agents. Probable 23-hour observation and cardiology consultation if initial workup is negative. This patient will be signed out to daytime physician for final disposition.. 08:40 Differential diagnosis: arrythmia, dehydration, stress disorder. Counseling: I had a rn detailed discussion with the patient and/or guardian regarding the historical points, exam findings, and any diagnostic results supporting the discharge/admit diagnosis, lab results, radiology results, the need for outpatient follow up, to return to the emergency department if symptoms worsen or persist or if there are any questions or concerns that arise at home. Special discussion: I discussed with the patient/guardian in detail that at this point there is no indication for admission to the hospital. It is understood, however, that if the symptoms persist or worsen the patient needs to return immediately for re-evaluation. ED course: Signed out to me by Dr. Coulter at shift change. Patient was presenting with arrhythmia, spontaneously cardioverted prior to intervention, workup thus far negative. Plan was to repeat troponin and if negative can discharge with follow-up with cardiology. Patient has a known history of atrial fibrillation and already anticoagulated.. 07/29 06:13 Order name: Basic Metabolic Panel; Complete Time: 07:01 sp3 07/29 06:13 Order name: CBC with Diff; Complete Time: 07:01 sp3 07/29 06:13 Order name: LFT's; Complete Time: 07:01 sp3 07/29 06:13 Order name: Magnesium; Complete Time: 07:01 sp3 07/29 06:13 Order name: NT PRO-BNP; Complete Time: 07:01 sp3 07/29 06:13 Order name: PT-INR; Complete Time: 07:01 sp3 07/29 06:13 Order name: Troponin HS; Complete Time: 07:01 sp3 07/29 07:44 Order name: Troponin High Sensitivity; Complete Time: 08:40 rn 07/29 06:13 Order name: XRAY Chest (1 view); Complete Time: 07:02 sp3 07/29 06:13 Order name: Cardiac monitoring; Complete Time: 06:18 sp3 07/29 06:13 Order name: EKG - Nurse/Tech; Complete Time: 06:18 sp3 07/29 06:13 Order name: IV Saline Lock; Complete Time: 06:18 sp3 07/29 06:13 Order name: Labs collected and sent; Complete Time: 06:18 sp3 07/29 06:13 Order name: O2 Per Protocol; Complete Time: 06:18 sp3 07/29 06:13 Order name: O2 Sat Monitoring; Complete Time: 06:18 sp3 Administered Medications: No medications were administered Disposition Summary: 07/30/23 08:41 Discharge Ordered Notes: Location: Home rn Problem: an acute exacerbation rn Symptoms: have improved rn Condition: Stable rn Diagnosis - Paroxysmal atrial fibrillation rn Followup: rn - With: Private Physician - When: As needed - Reason: Recheck today's complaints, Re-evaluation by your physician Discharge Instructions: - Discharge Summary Sheet rn - Atrial Fibrillation rn Forms: - Medication Reconciliation Form rn - Thank You Letter rn - Antibiotic associate attorney - Prescription Opioid Use rn - Patient Portal Instructions rn - Leadership Thank You Letter rn - Work release form rs5 Signatures: Dispatcher [employer] Lex Thakkar MD MD rn Patel, Setul, MD MD sp3 Ralph, Sharmila, RN RN cm10 Corrections: (The following items were deleted from the chart) 06:13 06:13 BASIC METABOLIC PANEL+C.LAB.BRZ ordered. EDMS EDMS 06:13 06:13 CBC+H.LAB.BRZ ordered. EDMS EDMS 06:13 06:13 HEPATIC FUNCTION+C.LAB.BRZ ordered. EDMS EDMS 06:13 06:13 MAGNESIUM+C.LAB.BRZ ordered. EDMS EDMS 06:13 06:13 PROBNP+C.LAB.BRZ ordered. EDMS EDMS 06:13 06:13 PROTIME (+INR)+COAG.LAB.BRZ ordered. EDMS EDMS 06:13 06:13 Troponin High Sensitivity+C.LAB.BRZ ordered. EDMS EDMS 06:13 06:13 Chest Single View+RAD.RAD.BRZ ordered. EDMS EDMS 07:45 07:45 Troponin High Sensitivity+C.LAB.BRZ ordered. EDMS EDMS
--- NOTE | 2023-07-30 08:42 | ER ---
Nurse's Notes [facility] Name: Becca De Leon Age: 62 yrs Sex: Female : 1960 Arrival Date: 07/30/2023 Time: 06:03 Bed 4 Private MD: Diagnosis: Paroxysmal atrial fibrillation Presentation: 07/29 06:08 Chief complaint: Patient states: Dizziness, shortness of breath, and palpitations onset cm10 today at 0200. 06:08 Coronavirus screen: Client denies travel out of the [place] in the last 14 days. At this cm10 time, the client does not indicate any symptoms associated with coronavirus-19. Ebola Screen: Patient denies travel to an Ebola-affected area in the 21 days before illness onset. No symptoms or risks identified at this time. Initial Sepsis Screen: Does the patient meet any 2 criteria? HR > 90 bpm. Does the patient have a suspected source of infection? No. Patient's initial sepsis screen is negative. Risk Assessment: Do you want to hurt yourself or someone else? Patient reports no desire to harm self or others. Onset of symptoms was July 30, 2023. 06:08 Method Of Arrival: Wheelchair cm10 06:08 Acuity: DINORAH 2 cm10 Triage Assessment: 06:16 General: Appears in no apparent distress. uncomfortable, Behavior is anxious. Pain: cm10 Denies pain. Neuro: No deficits noted. Level of Consciousness is awake, alert, obeys commands, Oriented to person, place, time, situation. Cardiovascular: Rhythm is regular. Respiratory: No deficits noted. Airway is patent Respiratory effort is even, unlabored, Respiratory pattern is regular, symmetrical. Historical: - Allergies: 06:15 No Known Allergies; cm10 - PMHx: 06:15 Atrial fibrillation; breast cancer L side; Hypertension; cm10 - Immunization history:: Adult Immunizations up to date. - Infectious Disease History:: Denies. - Social history:: Smoking status: Patient denies any tobacco usage or history of. Screenin:18 [facility] ED Fall Risk Assessment (Adult) History of falling in the last 3 months, cm10 including since admission No falls in past 3 months (0 pts) Confusion or Disorientation No (0 pts) Intoxicated or Sedated No (0 pts) Impaired Gait Yes (1 pt) Mobility Assist Device Used Yes (1 pt) Altered Elimination No (0 pt) Score/Fall Risk Level 0 - 2 = Low Risk Oriented to surroundings, Maintained a safe environment, Hourly rounding (assess needs \T\ fall precautionary measures) done. Abuse screen: Denies threats or abuse. Denies injuries from another. Nutritional screening: No deficits noted. Tuberculosis screening: No symptoms or risk factors identified. Assessment: 06:16 Reassessment: Pt noted to have converted back to a normal sinus rhythm before initial cm10 EKG could be obtained. 07:02 Reassessment: Patient and/or family updated on plan of care and expected duration. Pain rs5 level reassessed. Patient is alert, oriented x 3, equal unlabored respirations, skin warm/dry/pink. Patient denies pain at this time. Patient states feeling better. Respiratory: Respiratory effort is even, unlabored, Respiratory pattern is regular, symmetrical. 07:13 General: Appears in no apparent distress. comfortable, Behavior is calm, cooperative, ld1 appropriate for age. Pain: Denies pain. Neuro: Level of Consciousness is awake, alert, obeys commands, Oriented to person, place, time, situation. Cardiovascular: Capillary refill < 3 seconds Patient's skin is warm and dry. Rhythm is sinus rhythm. Respiratory: Airway is patent Respiratory effort is even, unlabored. GI: Abdomen is flat, non-distended. : No signs and/or symptoms were reported regarding the genitourinary system. EENT: No signs and/or symptoms were reported regarding the EENT system. Derm: No signs and/or symptoms reported regarding the dermatologic system. Musculoskeletal: No signs and/or symptoms reported regarding the musculoskeletal system. 08:09 Cardiovascular: Patient's skin is warm and dry. Rhythm is regular. rs5 08:54 Reassessment: Patient and/or family updated on plan of care and expected duration. Pain rs5 level reassessed. Patient is alert, oriented x 3, equal unlabored respirations, skin warm/dry/pink. Vital Signs: 06:08 BP 143 / 111; Pulse 132; Resp 20; Temp 98.5(O); Pulse Ox 97% on R/A; Weight 106.59 kg; cm10 Height 5 ft. 5 in. ; Pain 0/10; 06:15 BP 151 / 90; Pulse 73; Resp 18; Pulse Ox 97% ; cm10 07:13 BP 139 / 79; Pulse 60; Resp 18; Pulse Ox 96% on R/A; ld1 08:54 BP 142 / 84; Pulse 75; Resp 18; Pulse Ox 98% on R/A; rs5 06:08 Body Mass Index 39.11 (106.59 kg, 165.1 cm) cm10 06:08 Pain Scale: Adult cm10 ED Course: 06:12 Patient arrived in ED. kmf 06:12 Noah Coulter MD is Attending Physician. sp3 06:15 Triage completed. cm10 06:15 Arm band placed on Patient placed in an exam room, on a stretcher, on manager monitoring, cm10 on pulse oximetry. EKG completed in triage. Results shown to MD. 06:18 Patient has correct armband on for positive identification. Bed in low position. Call cm10 light in reach. Side rails up X2. Provided Education on: ER process and procedures.. Client placed on continuous cardiac and pulse oximetry monitoring. NIBP monitoring applied. monitoring manager on. Warm blanket given. 06:18 No provider procedures requiring assistance completed. Initial lab(s) drawn, by ED cm10 staff, sent to lab. Inserted saline lock: 20 gauge in right hand, using aseptic technique. Blood collected. 06:46 XRAY Chest (1 view) In Process Unspecified. EDMS 07:02 Attending Physician role handed off by Noah Coulter MD rn 07:02 Lex Hewitt MD is Attending Physician. rn 07:13 Vandaan Jarquin, BRIDGER is Primary Nurse. ld1 08:55 IV discontinued, intact, bleeding controlled, No redness/swelling at site. Pressure rs5 dressing applied. Administered Medications: No medications were administered Medication: 06:18 VIS not applicable for this client. cm10 Outcome: 08:41 Discharge ordered by . rn 08:55 Discharged to home ambulatory, rs5 08:55 Condition: stable 08:55 Discharge instructions given to patient, family, Instructed on discharge instructions, follow up and referral plans. Demonstrated understanding of instructions, follow-up care, 08:55 Patient left the ED. rs5 Signatures: Dispatcher [employer] Lex Hewitt MD MD rn Sims, Lauren, RN RN ld1 Noah Coulter MD MD sp3 Dick Fuller RN RN rs5 Sharmila Rosas, RN RN cm10 Elana Aquino [facility]
[2023-07-30 09:44] VITALS: BP 142/84; TEMP 98.5; O2SAT 98
== END 2023-07-30 08:55 | disposition home or self-care (01) ==
LOC: ER 06:03
DX: I48.0 Paroxysmal atrial fibrillation (principal); I10 Essential (primary) hypertension
CPT/HCPCS: 36415; 71045; 80048; 80076; 83735; 83880; 84484; 85025; 85610; 93005; 99284